=== PATIENT | female | born 1945 | race Caucasian/White ===

== ENCOUNTER 2018-04-09 13:09 | Inpatient (IN) | payer MEDICARE, OTHER ==
[~2018-04-09] VITALS: Ht 167.6 cm; Wt 73.0 kg
[~2018-04-09 13:09] MED LIST: ACHYD1T PO; ATOR20TA66 PO; CALC1TAB7 PO; CAND1TAB2 PO; CLCX200C PO; DCS100C PO; ESTR0.3T PO; ESTR2TAB PO; FEXO-142 PO; FLUT50DI IH; MECL-105 PO; NITR-65 PO; POTA99TA18 PO
[2018-04-09] MEDS ORDERED: ONDANSETRON 4 MG/2 ML (SDV) Z0FRAN IVP PRN (13:30)
[2018-04-09] MEDS ORDERED: IBUPROFEN TABLET 200 MG TAB PO PRN (13:30)
[2018-04-09] MEDS ORDERED: ACETAMINOPHEN 500 MG TAB (TYLENOL) PO PRN (13:30)
[2018-04-09] MEDS ORDERED: fentaNYL INJECTION 100 MCG/2 ML AMP IVP PRN (13:30)
[2018-04-09 16:00] VITALS: BP 157/74
[2018-04-09] MEDS ORDERED: PIPERACILLIN/TAZO 4.5 GM/D5W 100 ML IVPB IV NR ×2 (16:00)
[2018-04-09] MEDS: inSUlin ASPART (NovoLOG) 1 UNIT/0.01 ML (CHARGE PER UNIT) SC SCH ×2 (16:55→21:02)
[2018-04-09 17:06] LABS: BASOPHILS % (AUTO) 0 % (0-10); EOSINOPHILS # (AUTO) 0.1 10^3/uL (0.0-0.3); EOSINOPHILS % (AUTO) 1 % (0-10); HEMATOCRIT 35 % (35-52); HEMOGLOBIN 12.1 G/DL (11.5-16.0); LYMPHOCYTES % (AUTO) 10 % (12-44); MEAN CORPUSCULAR HEMOGLOBIN 30 PG (25-34); MEAN CORPUSCULAR HGB CONC 34 G/DL (32-36); MEAN CORPUSCULAR VOLUME 86 FL (80-99); MEAN PLATELET VOLUME 8.7 FL (7.4-10.4); MONOCYTES # (AUTO) 0.7 X 10^3 (0.0-1.0); MONOCYTES % (AUTO) 7 % (0-12); NEUTROPHILS # (AUTO) 7.8 X 10^3 (1.8-7.8); NEUTROPHILS % (AUTO) 81 % (42-75); PLATELET COUNT 321 10^3/uL (130-400); RED CELL DISTRIBUTION WIDTH 13.3 % (10.0-14.5); WHITE BLOOD COUNT 9.6 10^3/uL (4.3-11.0)
[2018-04-09] MEDS: ENOXAPARIN 40 MG/0.4 ML (LOVENOX) SYR SC SCH (17:06)
[2018-04-09] MEDS: methylPREDNISolone 40 MG/ML (Solu-MEDROL) VIAL IV SCH (17:07)
[2018-04-09] MEDS ORDERED: CATHETER FLUSH 10 ML SYR IV PRN (17:15)
[2018-04-09] MEDS ORDERED: NS 250 ML (IVPB) BAG IV ONE (17:15)
[2018-04-09] MEDS ORDERED: RECEIVED CONTRAST (Hold Metformin) IV SCH (17:15)
[2018-04-09] MEDS ORDERED: IOHEXOL 350 MG/ML 100 ML (OMNIPAQUE 350) VIAL IV ONE (17:15)
[2018-04-09 17:29] LABS: ERYTHROCYTE SEDIMENTATION RATE 20 MM/HR (0-30)
[2018-04-09 17:31] LABS: ALANINE AMINOTRANSFERASE 25 U/L (0-55); ALKALINE PHOSPHATASE 185 U/L (40-136); BILIRUBIN,TOTAL 0.9 MG/DL (0.1-1.0); BUN/CREATININE RATIO 10; CALCIUM 9.1 MG/DL (8.5-10.1); CARBON DIOXIDE 24 MMOL/L (21-32); CHLORIDE 103 MMOL/L (98-107); CREATININE SERUM 0.82 MG/DL (0.60-1.30); GFR ESTIMATED > 60; GLUCOSE 95 MG/DL (70-105); POTASSIUM 3.5 MMOL/L (3.6-5.0); SODIUM 135 MMOL/L (135-145); TOTAL PROTEIN 6.8 GM/DL (6.4-8.2)
--- OUTSIDE RECORDS SUMMARY | 2018-04-09 17:48 | XMS REPORT | Clinical Summary ---
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 Cinda Wallis Cystocele, midline UTI 599.0 Active Cinda Wallis Urinary tract infection, site not specified HRT V07.4 Active Cinda Wallis Hormone replacement therapy (postmenopausal) OSTEOARTHRITIS 715.90 Active Cinda Wallis Osteoarthrosis, unspecified whether generalized or localized, involving unspecified site BACK PAIN 724.5 Active Cinda Wallis Backache, unspecified HYPERCHOLESTEROLEMIA 272.0 Active Cinda Wallis Pure hypercholesterolemia BENIGN POSITIONAL VERTIGO 386.11 Resolved Cinda Wallis Benign paroxysmal positional vertigo HYPERCALCEMIA 275.42 Active Cinda Wallis Hypercalcemia Medication List Medication Instructions Start Date Stop Date Generic Name NDC Status Provider Patient Instruction TRANSDERM-SCOP 1.5 MG PT72 1 patch behind ear and change every 3 days SCOPOLAMINE BASE 32582500092 Active Cinda Wallis CALTRATE 600 PLUS-VIT D 600-200 MG-IU TABS 1 PO BID CALCIUM- VITAMIN D No Longer Active Cinda Wallis ZOSTAVAX 22458 UNT/0.65ML SOLR 1 injection once to prevent Shingles ZOSTER VACCINE LIVE 74225351710 No Longer Active Cinda Tangela Wallis ESTRACE 1 MG TAB 1 PO Daily ESTRADIOL 22477051335 Active Cinda Tangela Wallis MACROBID 100 MG CAP 1 PO every third day NITROFURANTOIN MONOHYD MACRO 66132212379 No Longer Active Cinda Tangela Wallis FLUTICASONE PROPIONATE 50 MCG/ACT SUSP 2 puffs daily FLUTICASONE PROPIONATE 63278285588 Active Ladonna Luztis AFRIN NASAL SPRAY 0.05 % SOLN 2 puffs each nostril BID for 3 days. OXYMETAZOLINE HCL 53237791327 No Longer Active Cindadaisy Wallis TRANSDERM-SCOP 1.5 MG PT72 1 patch behind ear and change every 3 days SCOPOLAMINE BASE 92950503331 No Longer Active Cindadaisy Wallis MECLIZINE HCL 25 MG TAB 1 PO Q6hrs prn dizziness MECLIZINE HCL 41469684127 Active Cindadaisy Wallis LIPITOR 20 MG TAB 1 PO QD ATORVASTATIN CALCIUM 75201233417 Active Cinda Wallis NASACORT AQ 55 MCG/ACT AERS 2 puffs each nostril daily TRIAMCINOLONE ACETONIDE 75490124088 No Longer Active Cindadaisy Wallis GNP POTASSIUM 99 MG TABS 1 PO daily POTASSIUM 25094931834 Active Cindadaisy Wallis PREMARIN 0.3 MG TAB 1 PO QD ESTROGENS CONJUGATED 97271643930 No Longer Active Cindadaisy Wallis CELEBREX 200 MG CAPS 1 po qd CELECOXIB 66157351217 Active Cinda Wallis ATACAND HCT 16-12.5 MG TABS 1 PO daily CANDESARTAN CILEXETIL-HCTZ 00564575813 Active Cinda Wallis Immunizations Vaccine Administration Date Value Standard Description pneumococcal immunization administered Done pneumococcal polysaccharide vaccine, 23 valent Influenza vaccine given DONE influenza virus vaccine, unspecified formulation Vital Signs Date Name Value Unit Range Description blood pressure, diastolic - 8462-4 70 mm[Hg] BP valdovinos blood pressure, systolic - 8480-6 124 mm[Hg] BP sys pulse rate E&M - 8867-4 70 /min Heart rate respiratory rate E&M - 9279-1 14 /min Resp rate temperature E&M 97.1 [degF] Body temperature weight E&M - 3141-9 151 [lb_av] Weight Measured blood pressure, diastolic - 8462-4 70 mm[Hg] BP valdovinos blood pressure, systolic - 8480-6 131 mm[Hg] BP sys pulse rate E&M - 8867-4 68 /min Heart rate respiratory rate E&M - 9279-1 14 /min Resp rate temperature E&M 97.8 [degF] Body temperature weight E&M - 3141-9 155 [lb_av] Weight Measured blood pressure, diastolic - 8462-4 65 mm[Hg] BP valdovinos blood pressure, systolic - 8480-6 120 mm[Hg] BP sys pulse rate E&M - 8867-4 66 /min Heart rate respiratory rate E&M - 9279-1 14 /min Resp rate temperature E&M 98.6 [degF] Body temperature weight E&M - 3141-9 152 [lb_av] Weight Measured Diagnostic Results Date Name Value Unit Range Description Clinical Lists Update: CMP,FLP,HgA1c - Chemistry Estimated Glomerular Filtration Rate (calc) 56 mL/min/1.73m2 LDL cholesterol, serum 96 mg/dL albumin, serum 4.6 g/dL alkaline phosphatase, serum 160 U/L urea nitrogen, blood 14 mg/dL calcium, serum 10.0 mg/dL chloride, serum 100 mmol/L cholesterol, serum 201 mg/dL carbon dioxide, venous blood 23 mmol/L creatinine, serum 0.99 mg/dL HDL cholesterol, serum 88 mg/dL hemoglobin A1C, blood, as % of total hemoglobin 5.30 % potassium, serum 4.0 mmol/L protein, total, serum 7.1 g/dL aspartate aminotransferase (SGOT), serum 21 U/L alanine aminotransferase (SGPT), serum 21 U/L bilirubin, serum, total 0.8 mg/dL triglyceride, serum, fasting 84 mg/dL sodium, serum 137 mmol/L anion gap, serum 18 cholesterol/HDL ratio, serum, percent 2.3 very low density lipoproteins 17 mg/dL glucose, plasma fasting 88 mg/dL Clinical Lists Update: CMP,FLP,TSH,FREE T4 - Chemistry LDL cholesterol, serum 80 mg/dL Estimated Glomerular Filtration Rate (calc) 59 mL/min/1.73m2 potassium, serum 3.8 mmol/L calcium, serum 10.6 mg/dL protein, total, serum 7.2 g/dL carbon dioxide, venous blood 25 mmol/L aspartate aminotransferase (SGOT), serum 19 U/L urea nitrogen, blood 9 mg/dL alanine aminotransferase (SGPT), serum 14 U/L creatinine, serum 0.94 mg/dL bilirubin, serum, total 0.9 mg/dL chloride, serum 97 mmol/L triglyceride, serum, fasting 95 mg/dL thyroxine, serum, free 0.87 ng/dL sodium, serum 135 mmol/L HDL cholesterol, serum 96 mg/dL alkaline phosphatase, serum 145 U/L albumin, serum 4.5 g/dL very low density lipoproteins 19 mg/dL cholesterol, serum 213 mg/dL glucose, plasma fasting 89 mg/dL thyroid stimulating hormone, serum 3.19 u[iU]/mL Clinical Lists Update: HgA1c - Chemistry hemoglobin A1C, blood, as % of total hemoglobin 4.7 % Encounters Code Encounter Date Provider Facility CPT-53909 Ofc Vst, Est Level IV 17:14:29 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 [facility] CPT-91823 Ofc Vst, Est Level III 15:33:52 CDT [facility] Tangela Wallis DO, FACP CPT-91576 Ofc Vst, Est Level III 19:46:06 CDT [facility] CPT-49786 Ofc Vst, New Level III 21:39:11 CDT [facility] Procedures Code Procedure Name Date Entry Date Standard Description CPT-G0439 Medicare Annual Wellness Visit 19:51:24 CDT CPT-G8443 E-Prescribing Medication Sent 19:46:06 CDT CPT-G8443 E-Prescribing Medication Sent 14:42:11 CDT CPT-G0438 Medicare Annual Wellness Visit Initial 14:42:11 CDT CPT-G8445 E-Prescribing Not sent due to no medication given 21:39: 11 CDT
--- OUTSIDE RECORDS SUMMARY | 2018-04-09 17:48 | XMS REPORT | Clinical Summary ---
Author Author User, EDIE Quevedo [place] [facility] Address Unknown Phone Allergies, Adverse Reactions, Alerts Allergy Name Reaction Description Start Date Severity Status Provider No Known Allergies [place] Conditions or Problems Problem Name Problem Code [...] vertigo HYPERCALCEMIA 275.42 Active Cinda Wallis Hypercalcemia SINUSITIS, SPHENOIDAL, ACUTE 461.3 Active Cinda Wallis Acute sphenoidal sinusitis Medication List Medication Instructions Start Date Stop Date Generic Name NDC Status Provider Patient Instruction DR. WEBSTER NASAL SPRAY (DEXAMETHASONE, GENTAMICIN, SALINE) 2 puffs each nostril TID for [address] CAMPOS'S NASAL SPRAY ( DEXAMETHASONE, GENTAMICIN, SALINE) No Longer Active Cinda Wallis PREDNISONE 10 MG TAB 2 PO at one time once daily for 3 days, then 1 PO daily for 4 days PREDNISONE 20373257452 No Longer Active Cinda Wallis HYDROXYZINE HCL 25 MG TAB 1 PO QHS prn sinus drainage. HYDROXYZINE HCL 47403547891 Active Cinda Wallis CEFDINIR 300 MG CAPS 1 PO BID CEFDINIR 66651817352 No Longer Active Cinda Wallis TRANSDERM-SCOP 1.5 MG PT72 1 patch behind ear and change every 3 days SCOPOLAMINE BASE 50021694424 Active Ladonna Su CALTRATE 600 PLUS-VIT D 600-200 MG-IU TABS 1 PO BID CALCIUM- VITAMIN D No Longer Active Cinda Wallis ZOSTAVAX 59805 UNT/0.65ML SOLR 1 injection once to prevent Shingles ZOSTER VACCINE LIVE 26799970673 No Longer Active Cinda Wallis ESTRACE 1 MG TAB 1 PO Daily ESTRADIOL 99594086225 Active Cinda Wallis MACROBID 100 MG CAP 1 PO every third day NITROFURANTOIN MONOHYD MACRO 94915220468 No Longer Active Cinda Wallis FLUTICASONE PROPIONATE 50 MCG/ACT SUSP 2 puffs daily FLUTICASONE PROPIONATE 44141200148 Active Ladonna Su AFRIN NASAL SPRAY 0.05 % SOLN 2 puffs each nostril BID for 3 days. OXYMETAZOLINE HCL 55147564035 No Longer Active Cinda Wallis TRANSDERM-SCOP 1.5 MG PT72 1 patch behind ear and change every 3 days SCOPOLAMINE BASE 36164219273 No Longer Active Cinda Wallis MECLIZINE HCL 25 MG TAB 1 PO Q6hrs prn dizziness MECLIZINE HCL 51378903923 Active Cinda Wallis LIPITOR 20 MG TAB 1 PO QD ATORVASTATIN CALCIUM 59418076289 Active Cinda Honeycutt Wallis NASACORT AQ 55 MCG/ACT AERS 2 puffs each nostril daily TRIAMCINOLONE ACETONIDE 34651921799 No Longer Active Cinda Honeycutt Wallis GNP POTASSIUM 99 MG TABS 1 PO daily POTASSIUM 92345684084 Active Cinda Honeycutt Kadi PREMARIN 0.3 MG TAB 1 PO QD ESTROGENS CONJUGATED 56487208369 No Longer Active Cinda Honeycutt Kadi CELEBREX 200 MG CAPS 1 po qd CELECOXIB 14123106998 Active Cinda Honeycutt Wallis ATACAND HCT 16-12.5 MG TABS 1 PO daily CANDESARTAN CILEXETIL-HCTZ 47842069209 Active Cinda Tangela Kadi Immunizations Vaccine Administration Date Value Standard Description pneumococcal immunization administered Done pneumococcal polysaccharide vaccine, 23 valent Influenza vaccine given DONE influenza virus vaccine, unspecified formulation Vital Signs Date Name Value Unit Range Description blood pressure, diastolic - 8462-4 76 mm[Hg] BP valdovinos blood pressure, systolic - 8480-6 124 mm[Hg] BP sys pulse rate E&M - 8867-4 68 /min Heart rate respiratory rate E&M - 9279-1 14 /min Resp rate temperature E&M 97.4 [degF] Body temperature weight E&M - 3141-9 [...] Value Unit Range Description Clinical Lists Update: CMP,FLP - Chemistry Estimated Glomerular Filtration Rate (calc) 65 mL/min/1.73m2 albumin, serum 4.1 g/dL very low density lipoproteins 16 mg/dL cholesterol/HDL ratio, serum, percent 2.3 anion gap, serum 13 sodium, serum 134 mmol/L triglyceride, serum, fasting 81 mg/dL bilirubin, serum, total 0.6 mg/dL alanine aminotransferase (SGPT), serum 12 U/L aspartate aminotransferase (SGOT), serum 16 U/L protein, total, serum 6.6 g/dL potassium, serum 3.8 mmol/L LDL cholesterol, serum 96 mg/dL HDL cholesterol, serum 89 mg/dL creatinine, serum 0.87 mg/dL carbon dioxide, venous blood 24 mmol/L cholesterol, serum 201 mg/dL chloride, serum 101 mmol/L calcium, serum 9.4 mg/dL urea nitrogen, blood 11 mg/dL alkaline phosphatase, serum 100 U/L glucose, plasma fasting 89 mg/dL Clinical Lists Update: CMP,FLP,HgA1c - Chemistry Estimated Glomerular Filtration Rate (calc) 56 mL/min/1.73m2 glucose, plasma fasting 88 mg/dL very low density lipoproteins 17 mg/dL cholesterol/HDL ratio, serum, percent 2.3 anion gap, serum 18 sodium, serum 137 mmol/L triglyceride, serum, fasting 84 mg/dL bilirubin, serum, total 0.8 mg/dL alanine aminotransferase (SGPT), serum 21 U/L aspartate aminotransferase (SGOT), serum 21 U/L protein, total, serum 7.1 g/dL potassium, serum 4.0 mmol/L LDL cholesterol, serum 96 mg/dL hemoglobin A1C, blood, as % of total hemoglobin 5.30 % HDL cholesterol, serum 88 mg/dL creatinine, serum 0.99 mg/dL carbon dioxide, venous blood 23 mmol/L cholesterol, serum 201 mg/dL chloride, serum 100 mmol/L calcium, serum 10.0 mg/dL urea nitrogen, blood 14 mg/dL alkaline phosphatase, serum 160 U/L albumin, serum 4.6 g/dL Clinical Lists Update: CMP,FLP,TSH,FREE T4 - Chemistry Estimated Glomerular Filtration Rate (calc) 59 mL/min/1.73m2 albumin, serum 4.5 g/dL glucose, plasma fasting 89 mg/dL very low density lipoproteins 19 mg/dL sodium, serum 135 mmol/L triglyceride, serum, fasting 95 mg/dL bilirubin, serum, total 0.9 mg/dL alanine aminotransferase (SGPT), serum 14 U/L aspartate aminotransferase (SGOT), serum 19 U/L protein, total, serum 7.2 g/dL potassium, serum 3.8 mmol/L LDL cholesterol, serum 80 mg/dL thyroid stimulating hormone, serum 3.19 u[iU]/mL HDL cholesterol, serum 96 mg/dL thyroxine, serum, free 0.87 ng/dL creatinine, serum 0.94 mg/dL carbon dioxide, venous blood 25 mmol/L cholesterol, serum 213 mg/dL chloride, serum 97 mmol/L calcium, serum 10.6 mg/dL urea nitrogen, blood 9 mg/dL alkaline phosphatase, serum 145 U/L Clinical Lists Update: HgA1c - Chemistry hemoglobin A1C, blood, as % of total hemoglobin 4.7 % Encounters Code Encounter Date Provider Facility CPT-13200 Ofc Vst, Est Level III 17:06:21 CDT Cinda Wallis DO, FACP CPT-56706 Ofc Vst, Est Level IV 17:14:29 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
--- OUTSIDE RECORDS SUMMARY | 2018-04-09 17:48 | XMS REPORT | Clinical Summary ---
Author Author User, LEYDIDestini Quevedo [place] [facility] Address Unknown Phone Allergies, Adverse Reactions, [...] and change every 3 days SCOPOLAMINE BASE 02745339541 Active Cinda Wallis CALTRATE 600 PLUS-VIT D 600-200 MG-IU TABS 1 PO BID CALCIUM- VITAMIN D No Longer Active Cinda Wallis ZOSTAVAX 85795 UNT/0.65ML SOLR 1 injection once to prevent Shingles ZOSTER VACCINE LIVE 17452211195 No Longer Active Cinda Tangela Wallis ESTRACE 1 MG TAB 1 PO Daily ESTRADIOL 16752751400 Active Cinda Tangela Wallis MACROBID 100 MG CAP 1 PO every third day NITROFURANTOIN MONOHYD MACRO 29431259407 No Longer Active Cinda Tangela Wallis FLUTICASONE PROPIONATE 50 MCG/ACT SUSP 2 puffs daily FLUTICASONE PROPIONATE 65081203379 Active Ladonna Luztis AFRIN NASAL SPRAY 0.05 % SOLN 2 puffs each nostril BID for 3 days. OXYMETAZOLINE HCL 75147272486 No Longer Active Cindadaisy Wallis TRANSDERM-SCOP 1.5 MG PT72 1 patch behind ear and change every 3 days SCOPOLAMINE BASE 56153700007 No Longer Active Cindadaisy Wallis MECLIZINE HCL 25 MG TAB 1 PO Q6hrs prn dizziness MECLIZINE HCL 95803401442 Active Cindadaisy Wallis LIPITOR 20 MG TAB 1 PO QD ATORVASTATIN CALCIUM 46020229607 Active Cinda Wallis NASACORT AQ 55 MCG/ACT AERS 2 puffs each nostril daily TRIAMCINOLONE ACETONIDE 97957265690 No Longer Active Cindadaisy Wallis GNP POTASSIUM 99 MG TABS 1 PO daily POTASSIUM 96292724992 Active Cindadaisy Wallis PREMARIN 0.3 MG TAB 1 PO QD ESTROGENS CONJUGATED 45390884248 No Longer Active Cindadaisy Wallis CELEBREX 200 MG CAPS 1 po qd CELECOXIB 06494475085 Active Cinda Wallis ATACAND HCT 16-12.5 MG TABS 1 PO daily CANDESARTAN CILEXETIL-HCTZ 71609476544 Active Cinda Wallis Immunizations Vaccine Administration Date [...] % Encounters Code Encounter Date Provider Facility CPT-18673 Ofc Vst, Est Level IV 17:14:29 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 [facility] Tangela SIM[facility] CPT-33798 Ofc Vst, Est Level III 15:33:52 CDT [facility] Tangela Wallis DO, FACP CPT-61119 Ofc Vst, Est Level III 19:46:06 CDT [facility] CPT-75936 Ofc Vst, New Level III 21:39:11 CDT [facility] Procedures Code Procedure Name Date Entry Date Standard Description CPT-G0439 Medicare Annual Wellness Visit 19:51:24 CDT CPT-G8443 E-Prescribing Medication Sent 19:46:06 CDT CPT-G8443 E-Prescribing Medication Sent 14:42:11 CDT CPT-G0438 Medicare Annual Wellness Visit Initial 14:42:11 CDT CPT-G8445 E-Prescribing Not sent due to no medication given 21:39: 11 CDT
--- OUTSIDE RECORDS SUMMARY | 2018-04-09 17:48 | XMS REPORT | Clinical Summary ---
Author Author User, EDIE Quevedo [place] [facility] Address Unknown Phone Allergies, Adverse Reactions, [...] CAMPOS'S NASAL SPRAY ( DEXAMETHASONE, GENTAMICIN, SALINE) Active Cinda Wallis PREDNISONE 10 MG TAB 2 PO at one time once daily for 3 days, then 1 PO daily for 4 days PREDNISONE 51197768467 Active Cinda Wallis HYDROXYZINE HCL 25 MG TAB 1 PO QHS prn sinus drainage. HYDROXYZINE HCL 76818248652 Active Cinda Wallis CEFDINIR 300 MG CAPS 1 PO BID CEFDINIR 96694047838 Active Cinda Wallis TRANSDERM-SCOP 1.5 MG PT72 1 patch behind ear and change every 3 days SCOPOLAMINE BASE 86446942449 Active Cinda Wallis CALTRATE 600 PLUS-VIT D 600-200 MG-IU TABS 1 PO BID CALCIUM- VITAMIN D No Longer Active Cinda Wallis ZOSTAVAX 22082 UNT/0.65ML SOLR 1 injection once to prevent Shingles ZOSTER VACCINE LIVE 55920436392 No Longer Active Cinda Wallis ESTRACE 1 MG TAB 1 PO Daily ESTRADIOL 89965253288 Active Cinda Wallis MACROBID 100 MG CAP 1 PO every third day NITROFURANTOIN MONOHYD MACRO 57117693789 No Longer Active Cinda Wallis FLUTICASONE PROPIONATE 50 MCG/ACT SUSP 2 puffs daily FLUTICASONE PROPIONATE 03411226042 Active Ladonna Su AFRIN NASAL SPRAY 0.05 % SOLN 2 puffs each nostril BID for 3 days. OXYMETAZOLINE HCL 45050788770 No Longer Active Cinda Wallis TRANSDERM-SCOP 1.5 MG PT72 1 patch behind ear and change every 3 days SCOPOLAMINE BASE 72183682359 No Longer Active Cinda Wallis MECLIZINE HCL 25 MG TAB 1 PO Q6hrs prn dizziness MECLIZINE HCL 49768029924 Active Cinda Wallis LIPITOR 20 MG TAB 1 PO QD ATORVASTATIN CALCIUM 33401393260 Active Cinda Honeycutt Wallis NASACORT AQ 55 MCG/ACT AERS 2 puffs each nostril daily TRIAMCINOLONE ACETONIDE 17048418263 No Longer Active Cinda Silvestrener GNP POTASSIUM 99 MG TABS 1 PO daily POTASSIUM 04856037038 Active Cinda Honeycutt Wallis PREMARIN 0.3 MG TAB 1 PO QD ESTROGENS CONJUGATED 71720337427 No Longer Active Cinda Honeycutt Kadi CELEBREX 200 MG CAPS 1 po qd CELECOXIB 48734198353 Active Cinda Honeycutt Wallis ATACAND HCT 16-12.5 MG TABS 1 PO daily CANDESARTAN CILEXETIL-HCTZ 72968486315 Active Cinda Honeycutt Kadi Immunizations Vaccine Administration Date Value Standard [...] Description Clinical Lists Update: CMP,FLP,HgA1c - Chemistry urea nitrogen, blood 14 mg/dL alkaline phosphatase, serum 160 U/L chloride, serum 100 mmol/L cholesterol, serum 201 mg/dL carbon dioxide, venous blood 23 mmol/L creatinine, serum 0.99 mg/dL HDL cholesterol, serum 88 mg/dL hemoglobin A1C, blood, as % of total hemoglobin 5.30 % LDL cholesterol, serum 96 mg/dL potassium, serum 4.0 mmol/L protein, total, serum 7.1 g/dL aspartate aminotransferase (SGOT), serum 21 U/L alanine aminotransferase (SGPT), serum 21 U/L bilirubin, serum, total 0.8 mg/dL triglyceride, serum, fasting 84 mg/dL sodium, serum 137 mmol/L anion gap, serum 18 cholesterol/HDL ratio, serum, percent 2.3 very low density lipoproteins 17 mg/dL glucose, plasma fasting 88 mg/dL Estimated Glomerular Filtration Rate (calc) 56 mL/min/1.73m2 albumin, serum 4.6 g/dL calcium, serum 10.0 mg/dL Clinical Lists Update: CMP,FLP,TSH,FREE T4 - Chemistry albumin, serum 4.5 g/dL alkaline phosphatase, serum 145 U/L urea nitrogen, blood 9 mg/dL calcium, serum 10.6 mg/dL chloride, serum 97 mmol/L cholesterol, serum 213 mg/dL carbon dioxide, venous blood 25 mmol/L creatinine, serum 0.94 mg/dL thyroxine, serum, free 0.87 ng/dL HDL cholesterol, serum 96 mg/dL thyroid stimulating hormone, serum 3.19 u[iU]/mL LDL cholesterol, serum 80 mg/dL potassium, serum 3.8 mmol/L protein, total, serum 7.2 g/dL aspartate aminotransferase (SGOT), serum 19 U/L alanine aminotransferase (SGPT), serum 14 U/L bilirubin, serum, total 0.9 mg/dL triglyceride, serum, fasting 95 mg/dL sodium, serum 135 mmol/L very low density lipoproteins 19 mg/dL glucose, plasma fasting 89 mg/dL Estimated Glomerular Filtration Rate (calc) 59 mL/min/1.73m2 Clinical Lists Update: HgA1c - Chemistry hemoglobin A1C, blood, as % of total hemoglobin 4.7 % Encounters Code Encounter Date Provider Facility CPT-54556 Ofc Vst, Est Level III 17:06:21 CDT Cinda Wallis DO, FACP CPT-26856 Ofc Vst, Est Level IV 17:14:[address] [facility] CPT-74447 Ofc Vst, Est Level III 15:33:52 CDT [facility] Tangela Wallis DO, FACP CPT-27841 Ofc Vst, Est Level III 19:46:06 CDT [facility] Tangela [facility] CPT-57227 Ofc Vst, New Level III 21:39:11 CDT [facility] Tangela [facility] Procedures Code Procedure Name Date Entry Date Standard Description CPT-G0439 Medicare Annual Wellness Visit 19:51:24 CDT CPT-G8443 E-Prescribing Medication Sent 19:46:06 CDT CPT-G8443 E-Prescribing Medication Sent 14:42:11 CDT CPT-G0438 Medicare Annual Wellness Visit Initial 14:42:11 CDT CPT-G8445 E-Prescribing Not sent due to no medication given 21:39: 11 CDT
--- OUTSIDE RECORDS SUMMARY | 2018-04-09 17:49 | XMS REPORT | Clinical Summary ---
Author Author User, EDIE Quevedo [facility] Address Unknown Phone Allergies, Adverse Reactions, Alerts Allergy Name Reaction Description Start Date Severity Status Provider No Known Allergies [place] Conditions or Problems Problem Name Problem [...] and change every 3 days SCOPOLAMINE BASE 47911291867 Active Cinda Wallis CALTRATE 600 PLUS-VIT D 600-200 MG-IU TABS 1 PO BID CALCIUM- VITAMIN D No Longer Active Cinda Wallis ZOSTAVAX 19888 UNT/0.65ML SOLR 1 injection once to prevent Shingles ZOSTER VACCINE LIVE 87353145499 No Longer Active Cinda Tangela Wallis ESTRACE 1 MG TAB 1 PO Daily ESTRADIOL 46637000442 Active Cinda Tangela Wallis MACROBID 100 MG CAP 1 PO every third day NITROFURANTOIN MONOHYD MACRO 28544625872 No Longer Active Cinda Tangela Wallis FLUTICASONE PROPIONATE 50 MCG/ACT SUSP 2 puffs daily FLUTICASONE PROPIONATE 40441945797 Active Ladonna Luztis AFRIN NASAL SPRAY 0.05 % SOLN 2 puffs each nostril BID for 3 days. OXYMETAZOLINE HCL 32920674765 No Longer Active Cindadaisy Wallis TRANSDERM-SCOP 1.5 MG PT72 1 patch behind ear and change every 3 days SCOPOLAMINE BASE 41893136724 No Longer Active Cinda Tangela Wallis MECLIZINE HCL 25 MG TAB 1 PO Q6hrs prn dizziness MECLIZINE HCL 24860119470 Active Cinda Tangela Wallis LIPITOR 20 MG TAB 1 PO QD ATORVASTATIN CALCIUM 34757561685 Active Cinda Wallis NASACORT AQ 55 MCG/ACT AERS 2 puffs each nostril daily TRIAMCINOLONE ACETONIDE 30294498260 No Longer Active Cindadaisy Wallis GNP POTASSIUM 99 MG TABS 1 PO daily POTASSIUM 88170250642 Active Cinda Tangela Wallis PREMARIN 0.3 MG TAB 1 PO QD ESTROGENS CONJUGATED 66710931991 No Longer Active Cinda Tangela Wallis CELEBREX 200 MG CAPS 1 po qd CELECOXIB 51092815967 Active Cindadaisy Wallis ATACAND HCT 16-12.5 MG TABS 1 PO daily CANDESARTAN CILEXETIL-HCTZ 80952503765 Active Cinda Wallis Immunizations Vaccine Administration Date [...] % Encounters Code Encounter Date Provider Facility CPT-89063 Ofc Vst, Est Level IV 17:14:29 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 Tangela Wallis DO, FACP CPT-89343 Ofc Vst, Est Level III 19:46:06 CDT [facility] CPT-87319 Ofc Vst, New Level III 21:39:11 CDT [facility] aTngela SIM[facility] Procedures Code Procedure Name Date Entry Date Standard Description CPT-G0439 Medicare Annual Wellness Visit 19:51:24 CDT CPT-G8443 E-Prescribing Medication Sent 19:46:06 CDT CPT-G8443 E-Prescribing Medication Sent 14:42:11 CDT CPT-G0438 Medicare Annual Wellness Visit Initial 14:42:11 CDT CPT-G8445 E-Prescribing Not sent due to no medication given 21:39: 11 CDT
--- OUTSIDE RECORDS SUMMARY | 2018-04-09 17:49 | XMS REPORT | Clinical Summary ---
Author Author User, LEYDIDestini Quevedo [place] [facility] Address Unknown Phone Allergies, Adverse Reactions, [...] and change every 3 days SCOPOLAMINE BASE 64168753322 Active Cinda Wallis CALTRATE 600 PLUS-VIT D 600-200 MG-IU TABS 1 PO BID CALCIUM- VITAMIN D No Longer Active Cinda Wallis ZOSTAVAX 58327 UNT/0.65ML SOLR 1 injection once to prevent Shingles ZOSTER VACCINE LIVE 87361183798 No Longer Active Cinda Tangela Wallis ESTRACE 1 MG TAB 1 PO Daily ESTRADIOL 70438097591 Active Cinda Tangela Wallis MACROBID 100 MG CAP 1 PO every third day NITROFURANTOIN MONOHYD MACRO 65223966177 No Longer Active Cinda Tangela Wallis FLUTICASONE PROPIONATE 50 MCG/ACT SUSP 2 puffs daily FLUTICASONE PROPIONATE 32833967081 Active Ladonna Luztis AFRIN NASAL SPRAY 0.05 % SOLN 2 puffs each nostril BID for 3 days. OXYMETAZOLINE HCL 69503918427 No Longer Active Cindadaisy Wallis TRANSDERM-SCOP 1.5 MG PT72 1 patch behind ear and change every 3 days SCOPOLAMINE BASE 58687599242 No Longer Active Cindadaisy Wallis MECLIZINE HCL 25 MG TAB 1 PO Q6hrs prn dizziness MECLIZINE HCL 91709399128 Active Cindadaisy Wallis LIPITOR 20 MG TAB 1 PO QD ATORVASTATIN CALCIUM 68426403269 Active Cinda Wallis NASACORT AQ 55 MCG/ACT AERS 2 puffs each nostril daily TRIAMCINOLONE ACETONIDE 29082447027 No Longer Active Cindadaisy Wallis GNP POTASSIUM 99 MG TABS 1 PO daily POTASSIUM 45326985168 Active Cindadaisy Wallis PREMARIN 0.3 MG TAB 1 PO QD ESTROGENS CONJUGATED 19013495071 No Longer Active Cindadaisy Wallis CELEBREX 200 MG CAPS 1 po qd CELECOXIB 76775214881 Active Cinda Wallis ATACAND HCT 16-12.5 MG TABS 1 PO daily CANDESARTAN CILEXETIL-HCTZ 39468463172 Active Cinda Wallis Immunizations Vaccine Administration Date [...] % Encounters Code Encounter Date Provider Facility CPT-71958 Ofc Vst, Est Level IV 17:14:29 PA[employer]STER [employer] [facility] Tangela SIMON [facility] CPT-12619 Ofc Vst, Est Level III 15:33:52 CDT [facility] Tangela Wallis DO, FACP CPT-11702 Ofc Vst, Est Level III 19:46:06 CDT [facility]ela [facility] CPT-79910 Ofc Vst, New Level III 21:39:11 CDT [facility] Tangela [facility] Procedures Code Procedure Name Date Entry Date Standard Description CPT-G0439 Medicare Annual Wellness Visit 19:51:24 CDT CPT-G8443 E-Prescribing Medication Sent 19:46:06 CDT CPT-G8443 E-Prescribing Medication Sent 14:42:11 CDT CPT-G0438 Medicare Annual Wellness Visit Initial 14:42:11 CDT CPT-G8445 E-Prescribing Not sent due to no medication given 21:39: 11 CDT
--- OUTSIDE RECORDS SUMMARY | 2018-04-09 17:49 | XMS REPORT | Clinical Summary ---
Author Author User, LEYDIDestini Quevedo [place] [facility] Address Unknown Phone Allergies, Adverse Reactions, [...] and change every 3 days SCOPOLAMINE BASE 32824106259 Active Cinda Wallis CALTRATE 600 PLUS-VIT D 600-200 MG-IU TABS 1 PO BID CALCIUM- VITAMIN D No Longer Active Cinda Wallis ZOSTAVAX 98373 UNT/0.65ML SOLR 1 injection once to prevent Shingles ZOSTER VACCINE LIVE 58178623511 No Longer Active Cinda Tangela Wallis ESTRACE 1 MG TAB 1 PO Daily ESTRADIOL 37039396315 Active Cinda Tangela Wallis MACROBID 100 MG CAP 1 PO every third day NITROFURANTOIN MONOHYD MACRO 86717878332 No Longer Active Cinda Tangela Wallis FLUTICASONE PROPIONATE 50 MCG/ACT SUSP 2 puffs daily FLUTICASONE PROPIONATE 61454401412 Active Ladonna Luztis AFRIN NASAL SPRAY 0.05 % SOLN 2 puffs each nostril BID for 3 days. OXYMETAZOLINE HCL 99344609290 No Longer Active Cindadaisy Wallis TRANSDERM-SCOP 1.5 MG PT72 1 patch behind ear and change every 3 days SCOPOLAMINE BASE 52932491403 No Longer Active Cindadaisy Wallis MECLIZINE HCL 25 MG TAB 1 PO Q6hrs prn dizziness MECLIZINE HCL 61183807217 Active Cindadaisy Wallis LIPITOR 20 MG TAB 1 PO QD ATORVASTATIN CALCIUM 16015855310 Active Cinda Wallis NASACORT AQ 55 MCG/ACT AERS 2 puffs each nostril daily TRIAMCINOLONE ACETONIDE 71154637952 No Longer Active Cindadaisy Wallis GNP POTASSIUM 99 MG TABS 1 PO daily POTASSIUM 60500117411 Active Cindadaisy Wallis PREMARIN 0.3 MG TAB 1 PO QD ESTROGENS CONJUGATED 73172797936 No Longer Active Cindadaisy Wallis CELEBREX 200 MG CAPS 1 po qd CELECOXIB 48004421805 Active Cinda Wallis ATACAND HCT 16-12.5 MG TABS 1 PO daily CANDESARTAN CILEXETIL-HCTZ 88304370063 Active Cinda Wallis Immunizations Vaccine Administration Date [...] % Encounters Code Encounter Date Provider Facility CPT-85533 Ofc Vst, Est Level IV 17:14:[address] [facility] Tangela SIMON OFFICE CPT-89812 Ofc Vst, Est Level III 15:33:[address] [facility] Tangela Wallis DO, FACP CPT-47881 Ofc Vst, Est Level III 19:46:[address] [facility] SIM[facility] CPT-40061 Ofc Vst, New Level III 21:39:[address] [facility] Tangela SIMON [facility] Procedures Code Procedure Name Date Entry Date Standard Description CPT-G0439 Medicare Annual Wellness Visit 19:51:24 CDT CPT-G8443 E-Prescribing Medication Sent 19:46:06 CDT CPT-G8443 E-Prescribing Medication Sent 14:42:11 CDT CPT-G0438 Medicare Annual Wellness Visit Initial 14:42:11 CDT CPT-G8445 E-Prescribing Not sent due to no medication given 21:39: 11 CDT
--- OUTSIDE RECORDS SUMMARY | 2018-04-09 17:50 | XMS REPORT | Clinical Summary ---
Author Author User, LEYDIDestini Quevedo [place] [facility] Address Unknown Phone Allergies, Adverse Reactions, [...] and change every 3 days SCOPOLAMINE BASE 11918904805 Active Cinda Wallis CALTRATE 600 PLUS-VIT D 600-200 MG-IU TABS 1 PO BID CALCIUM- VITAMIN D No Longer Active Cinda Wallis ZOSTAVAX 15478 UNT/0.65ML SOLR 1 injection once to prevent Shingles ZOSTER VACCINE LIVE 71687655055 No Longer Active Cinda Tangela Wallis ESTRACE 1 MG TAB 1 PO Daily ESTRADIOL 64784175522 Active Cinda Tangela Wallis MACROBID 100 MG CAP 1 PO every third day NITROFURANTOIN MONOHYD MACRO 25102856005 No Longer Active Cinda Tangela Wallis FLUTICASONE PROPIONATE 50 MCG/ACT SUSP 2 puffs daily FLUTICASONE PROPIONATE 13317466377 Active Ladonna Luztis AFRIN NASAL SPRAY 0.05 % SOLN 2 puffs each nostril BID for 3 days. OXYMETAZOLINE HCL 05785963978 No Longer Active Cindadaisy Wallis TRANSDERM-SCOP 1.5 MG PT72 1 patch behind ear and change every 3 days SCOPOLAMINE BASE 81512904386 No Longer Active Cindadaisy Wallis MECLIZINE HCL 25 MG TAB 1 PO Q6hrs prn dizziness MECLIZINE HCL 24964282390 Active Cindadaisy Wallis LIPITOR 20 MG TAB 1 PO QD ATORVASTATIN CALCIUM 78811152328 Active Cinda Wallis NASACORT AQ 55 MCG/ACT AERS 2 puffs each nostril daily TRIAMCINOLONE ACETONIDE 58225527373 No Longer Active Cindadaisy Wallis GNP POTASSIUM 99 MG TABS 1 PO daily POTASSIUM 09390995452 Active Cindadaisy Wallis PREMARIN 0.3 MG TAB 1 PO QD ESTROGENS CONJUGATED 30134018510 No Longer Active Cindadaisy Wallis CELEBREX 200 MG CAPS 1 po qd CELECOXIB 12699630069 Active Cinda Wallis ATACAND HCT 16-12.5 MG TABS 1 PO daily CANDESARTAN CILEXETIL-HCTZ 04523012358 Active Cinda Wallis Immunizations Vaccine Administration Date [...] % Encounters Code Encounter Date Provider Facility CPT-80092 Ofc Vst, Est Level IV 17:14:29 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 [facility] Tangela SIMON OFFICE CPT-42959 Ofc Vst, Est Level III 15:33:52 CDT [facility] Tangela Wallis DO, FACP CPT-54207 Ofc Vst, Est Level III 19:46:06 CDT [facility] Tangela SIMON [facility] CPT-01165 Ofc Vst, New Level III 21:39:11 CDT [facility] Tangela SIM[facility] Procedures Code Procedure Name Date Entry Date Standard Description CPT-G0439 Medicare Annual Wellness Visit 19:51:24 CDT CPT-G8443 E-Prescribing Medication Sent 19:46:06 CDT CPT-G8443 E-Prescribing Medication Sent 14:42:11 CDT CPT-G0438 Medicare Annual Wellness Visit Initial 14:42:11 CDT CPT-G8445 E-Prescribing Not sent due to no medication given 21:39: 11 CDT
--- OUTSIDE RECORDS SUMMARY | 2018-04-09 17:50 | XMS REPORT | Clinical Summary ---
Author Author User, EDIE Quevedo [place] [facility] Address Unknown Phone Allergies, Adverse Reactions, [...] and change every 3 days SCOPOLAMINE BASE 68435900512 Active Cinda Wallis CALTRATE 600 PLUS-VIT D 600-200 MG-IU TABS 1 PO BID CALCIUM- VITAMIN D No Longer Active Cinda Wallis ZOSTAVAX 08040 UNT/0.65ML SOLR 1 injection once to prevent Shingles ZOSTER VACCINE LIVE 79722954197 No Longer Active Cinda Tangela Wallis ESTRACE 1 MG TAB 1 PO Daily ESTRADIOL 13550821052 Active Cinda Tangela Wallis MACROBID 100 MG CAP 1 PO every third day NITROFURANTOIN MONOHYD MACRO 22934269842 No Longer Active Cinda Tangela Wallis FLUTICASONE PROPIONATE 50 MCG/ACT SUSP 2 puffs daily FLUTICASONE PROPIONATE 60230963205 Active Ladonna Luztis AFRIN NASAL SPRAY 0.05 % SOLN 2 puffs each nostril BID for 3 days. OXYMETAZOLINE HCL 69691364572 No Longer Active Cindadaisy Wallis TRANSDERM-SCOP 1.5 MG PT72 1 patch behind ear and change every 3 days SCOPOLAMINE BASE 56249125101 No Longer Active Cinda Tangela Wallis MECLIZINE HCL 25 MG TAB 1 PO Q6hrs prn dizziness MECLIZINE HCL 67552039019 Active Cinda Tangela Wallis LIPITOR 20 MG TAB 1 PO QD ATORVASTATIN CALCIUM 69139370342 Active Cinda Wallis NASACORT AQ 55 MCG/ACT AERS 2 puffs each nostril daily TRIAMCINOLONE ACETONIDE 08745087170 No Longer Active Cindadaisy Wallis GNP POTASSIUM 99 MG TABS 1 PO daily POTASSIUM 70059551858 Active Cinda Tangela Wallis PREMARIN 0.3 MG TAB 1 PO QD ESTROGENS CONJUGATED 67887119065 No Longer Active Cinda Tangela Wallis CELEBREX 200 MG CAPS 1 po qd CELECOXIB 33271731585 Active Cindadaisy Wallis ATACAND HCT 16-12.5 MG TABS 1 PO daily CANDESARTAN CILEXETIL-HCTZ 24795308906 Active Cinda Wallis Immunizations Vaccine Administration Date [...] % Encounters Code Encounter Date Provider Facility CPT-49316 Ofc Vst, Est Level IV 17:14:29 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 [facility]ela SIM[facility]ICE CPT-33387 Ofc Vst, Est Level III 15:33:52 CDT [facility] Tangela Wallis DO, FACP CPT-78862 Ofc Vst, Est Level III 19:46:06 CDT [facility]ela [facility] CPT-27116 Ofc Vst, New Level III 21:39:11 CDT [facility] Tangela [facility] Procedures Code Procedure Name Date Entry Date Standard Description CPT-G0439 Medicare Annual Wellness Visit 19:51:24 CDT CPT-G8443 E-Prescribing Medication Sent 19:46:06 CDT CPT-G8443 E-Prescribing Medication Sent 14:42:11 CDT CPT-G0438 Medicare Annual Wellness Visit Initial 14:42:11 CDT CPT-G8445 E-Prescribing Not sent due to no medication given 21:39: 11 CDT
[2018-04-09] MEDS ORDERED: LEVO50TA6 PO (18:44)
[2018-04-09] MEDS ORDERED: MONT10TA24 PO (18:44)
[2018-04-09] MEDS ORDERED: HYDR-700 PO (18:44)
--- NOTE | 2018-04-09 18:49 | Diagnostic Imaging Report ---
PROCEDURE: CT chest with contrast only. TECHNIQUE: Multiple contiguous axial images were obtained through the chest after administration of intravenous contrast. DATE: April 09, 2018. COMPARISON: None. INDICATION: 72-year-old female, dyspnea. Wheezing, cough, and chest tightness. FINDINGS: There is a 2 mm left upper lobe pulmonary nodule on axial image 23. There is focal airspace consolidation in the left upper lobe on axial image 33 and adjacent sequential images. There are predominantly linear opacities within the dependent aspects of the right lower lobe and left lower lobe likely reflecting mild atelectasis and/or scarring. There is no identified pneumothorax. The central airways are patent. There is no pleural effusion. There is no identified central pulmonary embolus. The main pulmonary artery is normal in caliber. The heart is normal in size. There is no pericardial effusion. There are atherosclerotic calcifications noted. There is no identified abnormally enlarged mediastinal, hilar, or axillary lymph node which specifically meets CT size criteria for adenopathy. Subcentimeter precarinal, right paratracheal, and right hilar lymph nodes are noted. Limited visualized portions of the upper abdomen are unremarkable in appearance. There is a sclerotic lesion in the T7 vertebral body, which measures 6 mm in size. Internal attenuation measures 984 Hounsfield units. This most likely reflects a benign bone island although difficult to definitively diagnose. No additional sclerotic bone lesion is present. There are degenerative changes of the spine. There is no identified acute bony abnormality. IMPRESSION: CT CHEST. 1. Focal airspace consolidation in the posterior aspect of the left upper lobe, which may reflect pneumonia or other alveolar consolidative process. Recommend correlation clinically and ensure followup to resolution. Dictated by: Dictated on workstation # [id number]
--- NOTE | 2018-04-09 18:49 | Diagnostic Imaging Report ---
EXAMINATION: Chest (PA and lateral). CLINICAL INDICATION: 72-year-old female, cough and wheezing. Shortness of breath. COMPARISON: CT chest of April 09, 2018 at 1817 hours. FINDINGS: There is very subtle airspace consolidation in the left upper lobe which is much easier appreciated on same day CT chest. There is no additional focal airspace consolidation noted radiographically. Heart size and mediastinal contours are unremarkable. There is no identified pneumothorax or pleural effusion. There are degenerative changes of the spine. IMPRESSION: Very subtle airspace consolidation in the left upper lobe much easier appreciated on same day CT chest. This may relate to pneumonia or other alveolar consolidative process. Recommend correlation clinically and ensure followup to resolution. Dictated by: Dictated on workstation # [id number]
--- NOTE | 2018-04-09 18:55 | Diagnostic Imaging Report ---
PROCEDURE: CT paranasal sinus without contrast TECHNIQUE: Multiple contiguous axial images were obtained through the sinuses without the use of intravenous contrast. Coronal and sagittal reformations were then performed. DATE: 04/09/2018. INDICATION: 72-year-old female, drainage and pressure in head. Shortness of breath. Cough and wheezing. COMPARISON: None available. FINDINGS: The bilateral maxillary sinuses, sphenoid sinuses, ethmoidal air cells, and frontal sinuses are well aerated. There is no air-fluid level. There are no frothy internal secretions. The bilateral sphenoethmoidal recesses are patent. The bilateral ostiomeatal units are patent. There is deviation of the bony nasal septum to the left of midline. The mastoid air cells and middle ears are well aerated, bilaterally. There is pneumatization of the Javier apices. The temporomandibular joints are normally aligned. The orbits are grossly unremarkable in appearance. There are degenerative changes at the C1-C2 articulation. IMPRESSION: 1. No evidence of acute or chronic sinusitis. 3. Deviation of the bony nasal septum to the left of midline. Dictated by: Dictated on workstation # [id number]
[2018-04-09] MEDS: RT-ALBUTEROL/IPRATROPIUM 3 ML (DUONEB) VIAL INH SCH ×2 (19:23→22:46)
[2018-04-09] MEDS: RT-BUDESONIDE NEBS 0.5 MG/2ML (PULMICORT) AMP INH SCH (19:23)
[2018-04-09 19:46] LABS: ABG OXYGEN SATURATION 95 % (94-100); ABG PCO2 33 MMHG (35-45); ABG PH 7.46 (7.37-7.43); ABG PO2 70 MMHG (79-93); ABG TCO2 24.5 MMOL/L (21.0-31.0)
[2018-04-09 19:49] LABS: ALLENS TEST POSITIVE; INSPIRED O2 ROOM AIR; VENTILATOR NO
[2018-04-09] MEDS: BENZONATATE 100 MG (TESSALON) CAPSULE PO SCH (20:09)
[2018-04-09] MEDS: HYDROCODONE/CHLOR 10MG/5 ML (TUSSIONEX SUSP) 5ML UDC PO SCH (20:10)
[2018-04-09 20:40] VITALS: BP 150/70
[2018-04-09] MEDS: PIPERACILLIN SODIUM/TAZOBACTAM 4.5 GM in NS (IVPB) 100 ML IV SCH (22:25)
[2018-04-09] MEDS: CATHETER FLUSH 10 ML SYR IV SCH (22:25)
[2018-04-10] VITALS (7 sets, daily range): BP systolic 101–151; BP diastolic 55–65
[2018-04-10] MEDS: methylPREDNISolone 40 MG/ML (Solu-MEDROL) VIAL IV SCH ×5 (00:24→23:07)
[2018-04-10] MEDS: RT-ALBUTEROL/IPRATROPIUM 3 ML (DUONEB) VIAL INH SCH ×6 (02:47→21:24)
[2018-04-10] MEDS: CATHETER FLUSH 10 ML SYR IV SCH ×3 (05:34→21:50)
[2018-04-10] MEDS: inSUlin ASPART (NovoLOG) 1 UNIT/0.01 ML (CHARGE PER UNIT) SC SCH ×4 (05:36→22:01)
[2018-04-10] MEDS: PIPERACILLIN SODIUM/TAZOBACTAM 4.5 GM in NS (IVPB) 100 ML IV SCH ×3 (05:36→21:50)
[2018-04-10 06:00] LABS: BASOPHILS % (AUTO) 0 % (0-10); EOSINOPHILS % (AUTO) 0 % (0-10); HEMATOCRIT 33 % (35-52); LYMPHOCYTES # (AUTO) 0.4 X 10^3 (1.0-4.0); LYMPHOCYTES % (AUTO) 4 % (12-44); MEAN CORPUSCULAR HEMOGLOBIN 29 PG (25-34); MEAN CORPUSCULAR HGB CONC 33 G/DL (32-36); MEAN CORPUSCULAR VOLUME 86 FL (80-99); MEAN PLATELET VOLUME 8.5 FL (7.4-10.4); MONOCYTES # (AUTO) 0.1 X 10^3 (0.0-1.0); MONOCYTES % (AUTO) 1 % (0-12); NEUTROPHILS % (AUTO) 96 % (42-75); PLATELET COUNT 307 10^3/uL (130-400); RED BLOOD COUNT 3.83 10^6/uL (4.35-5.85); RED CELL DISTRIBUTION WIDTH 13.6 % (10.0-14.5); WHITE BLOOD COUNT 9.4 10^3/uL (4.3-11.0)
[2018-04-10 06:20] LABS: ALBUMIN 3.8 GM/DL (3.2-4.5); BILIRUBIN,TOTAL 0.6 MG/DL (0.1-1.0); CALCIUM 9.2 MG/DL (8.5-10.1); CREATININE SERUM 0.97 MG/DL (0.60-1.30); POTASSIUM 2.9 MMOL/L (3.6-5.0); TOTAL PROTEIN 6.4 GM/DL (6.4-8.2)
[2018-04-10 06:25] LABS: BAND NEUTROPHILS 3 %; LYMPHOCYTES % (MANUAL) 3 %; MONOCYTES % (MANUAL) 1 %; NEUTROPHILS % (MANUAL) 93 %; RBC MORPH NORMAL
[2018-04-10] MEDS: RT-BUDESONIDE NEBS 0.5 MG/2ML (PULMICORT) AMP INH SCH ×2 (06:36→18:45)
[2018-04-10] MEDS ORDERED: CAND16TA12 PO (08:40)
[2018-04-10] MEDS ORDERED: CELE-63 PO (08:40)
[2018-04-10] MEDS ORDERED: ESTR2TAB PO (08:40)
[2018-04-10] MEDS ORDERED: FLUT1DIS26 INH (08:40)
[2018-04-10] MEDS ORDERED: ATOR20TA66 PO (08:40)
[2018-04-10] MEDS ORDERED: FEXO-46 PO (08:50)
[2018-04-10] MEDS ORDERED: HYDR473S34 PO (08:50)
[2018-04-10] MEDS ORDERED: FLUT9.9S NS (08:50)
[2018-04-10] MEDS: BENZONATATE 100 MG (TESSALON) CAPSULE PO SCH ×3 (08:54→20:14)
[2018-04-10] MEDS: HYDROCODONE/CHLOR 10MG/5 ML (TUSSIONEX SUSP) 5ML UDC PO SCH ×2 (08:54→20:14)
--- NOTE | 2018-04-10 10:37 | History & Physical-Hospitalist ---
History of Present Illness HPI/Chief Complaint CC: Cough HPI: This is a 72-year-old white female clinic patient of mine with a past medical history of seasonal allergies and asthma-like condition for the past 4 spring times who presented to my office as a work in appointment due to cough and shortness of breath. She has underwent multiple antibiotic rounds along with steroid rounds with imaging scans and labs for the past 8 weeks when she presented with congestion cough and bronchitis-like issues placed on asthma treatment seen every week since that time and even underwent a pulmonary function test and CT scan which IV infiltrated at [facility] so it was without contrast and continued to do poorly. I started the clinic yesterday found to have bilateral wheezing low-grade fever and just overall declining for the past 8 weeks. I ordered a CT scan which revealed pneumonia and I have placed her on inhaled corticosteroid and nebulizer solution in addition to IV steroids and empirically placed her on Zosyn for antibiotic coverage. I have assessed her to have status asthmaticus for the past 8 weeks and now pneumonia noted on CT scan that was not apparent on chest x-ray 2 weeks prior. She also had hyponatremia I stopped hydrochlorothiazide 5 days ago that has since resolved but severe hyperkalemia noted on labs today so will initiate aggressive supplement. Source: patient Exam Limitations: no limitations Date Seen 04/10/18 Time Seen by Provider: 08:30 Attending Physician Cinda Wallis DO PCP Cinda Wallis DO Referring Physician Date of Admission April 09, 2018 at 15:37 Home Medications & Allergies Home Medications Reviewed patient Home Medication Reconciliation performed by pharmacy medication reconciliations bench lay out technician and/or nursing. Patients Allergies have been reviewed. 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) Alcohol Use: Occasionally Uses Alcohol Beverage of Choice: Wine Recreational Drug Use: No Smoking Status: Never a Smoker Physical Abuse Screen: No Sexual Abuse: No Recent Foreign Travel: No Contact w/other who traveled: No Recent Hopitalizations: No Recent Infectious Disease Expo: No Immunizations Up To Date Pediatric: Yes Date of Pneumonia Vaccine: Jan 10, 2015 Date of Influenza Vaccine: Sep 07, 2014 Seasonal Allergies Seasonal Allergies: No Past Medical History Respiratory: Asthma Cardiac: High Cholesterol, Hypertension Reproductive: No Genitourinary: Bladder Infection History of Blood Disorders: No Family History Cardiovascular disease 19 FATHER, G8 SISTER Diabetes mellitus 19 MOTHER, FH: bladder cancer 19 FATHER, FH: lymphoma 19 MOTHER, FH: prostate cancer 19 FATHER, Hypertension Review of Systems Constitutional: see HPI, chills, dizziness, fever, malaise, weakness EENTM: mouth pain, nose congestion, throat pain Respiratory: cough, dyspnea on exertion, orthopnea, short of breath, wheezing Cardiovascular: no symptoms reported Gastrointestinal: loss of appetite, nausea, vomiting Genitourinary: decreased output Musculoskeletal: back pain Skin: no symptoms reported Psychiatric/Neurological: Anxiety, Depressed All Other Systems Reviewed Negative Unless Noted: Yes Physical Exam Physical Exam Vital Signs Vital Signs - First Documented 04/09/18 16:00 Temp 99.5 Pulse 84 Resp 18 B/P (MAP) 157/74 (101) Pulse Ox 96 O2 Delivery Room Air Capillary Refill : General Appearance: WD/WN, Chronically ill, Mild Distress (due to cough and declined status) Eyes: Bilateral Eye Normal Inspection, Bilateral Eye PERRL HEENT: PERRL/EOMI, Normal ENT Inspection, Pharynx Normal Neck: Full Range of Motion, Normal Inspection, Non Tender, Supple, Carotid Bruit Respiratory: Chest Non Tender, No Accessory Muscle Use, No Respiratory Distress , Crackles, Decreased Breath Sounds, Rales, Wheezing Cardiovascular: Regular Rate, Rhythm, No Edema, No Gallop, No JVD, No Murmur, Normal Peripheral Pulses Gastrointestinal: Normal Bowel Sounds, No Organomegaly, No Pulsatile Mass, Non Tender, Soft Back: Normal Inspection, No CVA Tenderness, No Vertebral Tenderness Extremity: Normal Capillary Refill, Normal Inspection, Normal Range of Motion, Non Tender, No Calf Tenderness, No Pedal Edema Neurologic/Psychiatric: Alert, Oriented x3, No Motor/Sensory Deficits, Normal Mood/Affect Skin: Normal Color, Warm/Dry Lymphatic: No Adenopathy Results Results/Procedures Labs Laboratory Tests 04/09/18 16:47 04/10/18 05:50 Patient resulted labs reviewed. Assessment/Plan Admission Diagnosis Assessment: Left upper lobe pneumonia failed multiple rounds of antibiotics and steroids Asthma Hypoxia Plan: Maintain IV steroids Nebulizer treatments Budesonide Zosyn Replace potassium Admission Status: Inpatient Order (span 2 midnights) Reason for Inpatient Admission: IV steroids along with IV abx due to resistant bacteria after failed PO abx Diagnosis/Problems Diagnosis/Problems (1) Pneumonia Status: Acute Assessment & Plan: IV abx, Nebs Qualifiers: Pneumonia type: due to unspecified organism Laterality: left Lung location: upper lobe of lung Qualified Codes: J18.1 - Lobar pneumonia, unspecified organism (2) Wheezing Status: Acute Assessment & Plan: IV steroids and Pulmicort (3) Status asthmaticus Status: Acute Assessment & Plan: IV steroids and Pulmicort Qualifiers: Asthma severity: moderate Asthma persistence: persistent Qualified Codes : J45.42 - Moderate persistent asthma with status asthmaticus (4) Hypokalemia Status: Acute Assessment & Plan: Replace IV and PO and Magnesium empirically (5) Hyposmolality and/or hyponatremia Status: Resolved (6) Cough Status: Acute Assessment & Plan: Tussionex (7) Hypoxemia Status: Acute Assessment & Plan: O2 (8) Hypertension Status: Acute Qualifiers: Hypertension type: essential hypertension Qualified Codes: I10 - Essential (primary) hypertension (9) OAB (overactive bladder) Status: Chronic Clinical Quality Measures DVT/VTE Risk/Contraindication: Risk Factor Score Per Nursin RFS Level Per Nursing on Admit: 2=Moderate CINDA WALLIS DO Apr 10, 2018 10:37
[2018-04-10] MEDS: NS IV 1000 ML 1,000 ML IV SCH (11:20)
[2018-04-10] MEDS: MAGNESIUM 1 GM/100 ML IVPB 100 ML IV SCH ×2 (11:20→13:58)
[2018-04-10] MEDS: POTASSIUM CL 10MEQ/50ML IVPB 50 ML IV SCH ×3 (11:21→13:58)
[2018-04-10] MEDS: KCL 10 MEQ TAB (MICRO K) PO SCH ×4 (11:58→20:13)
[2018-04-10] MEDS: ENOXAPARIN 40 MG/0.4 ML (LOVENOX) SYR SC SCH (16:13)
[2018-04-11] MEDS: RT-ALBUTEROL/IPRATROPIUM 3 ML (DUONEB) VIAL INH SCH ×6 (02:18→21:42)
[2018-04-11 04:14] VITALS: BP 117/59
[2018-04-11 04:55] LABS: BASOPHILS % (AUTO) 0 % (0-10); EOSINOPHILS % (AUTO) 0 % (0-10); HEMATOCRIT 31 % (35-52); HEMOGLOBIN 10.8 G/DL (11.5-16.0); LYMPHOCYTES # (AUTO) 0.4 X 10^3 (1.0-4.0); LYMPHOCYTES % (AUTO) 2 % (12-44); MEAN CORPUSCULAR HEMOGLOBIN 30 PG (25-34); MEAN CORPUSCULAR HGB CONC 34 G/DL (32-36); MEAN CORPUSCULAR VOLUME 87 FL (80-99); MONOCYTES # (AUTO) 0.6 X 10^3 (0.0-1.0); MONOCYTES % (AUTO) 2 % (0-12); NEUTROPHILS # (AUTO) 24.5 X 10^3 (1.8-7.8); NEUTROPHILS % (AUTO) 96 % (42-75); PLATELET COUNT 299 10^3/uL (130-400); RED BLOOD COUNT 3.62 10^6/uL (4.35-5.85); RED CELL DISTRIBUTION WIDTH 13.9 % (10.0-14.5); WHITE BLOOD COUNT 25.5 10^3/uL (4.3-11.0)
[2018-04-11] MEDS: PIPERACILLIN SODIUM/TAZOBACTAM 4.5 GM in NS (IVPB) 100 ML IV SCH ×3 (05:07→21:12)
[2018-04-11] MEDS: methylPREDNISolone 40 MG/ML (Solu-MEDROL) VIAL IV SCH ×4 (05:07→23:56)
[2018-04-11] MEDS: CATHETER FLUSH 10 ML SYR IV SCH ×3 (05:07→21:14)
[2018-04-11 05:19] LABS: ALANINE AMINOTRANSFERASE 26 U/L (0-55); ALBUMIN 3.5 GM/DL (3.2-4.5); ALKALINE PHOSPHATASE 151 U/L (40-136); BILIRUBIN,TOTAL 0.5 MG/DL (0.1-1.0); BUN/CREATININE RATIO 13; CALCIUM 8.5 MG/DL (8.5-10.1); CARBON DIOXIDE 19 MMOL/L (21-32); CHLORIDE 109 MMOL/L (98-107); CREATININE SERUM 0.83 MG/DL (0.60-1.30); GFR ESTIMATED > 60; GLUCOSE 174 MG/DL (70-105); POTASSIUM 3.8 MMOL/L (3.6-5.0); SODIUM 138 MMOL/L (135-145); TOTAL PROTEIN 5.9 GM/DL (6.4-8.2)
[2018-04-11] MEDS: inSUlin ASPART (NovoLOG) 1 UNIT/0.01 ML (CHARGE PER UNIT) SC SCH ×4 (05:23→21:22)
[2018-04-11] MEDS: NS IV 1000 ML 1,000 ML IV SCH (06:14)
[2018-04-11] MEDS: RT-BUDESONIDE NEBS 0.5 MG/2ML (PULMICORT) AMP INH SCH ×2 (06:46→18:29)
[2018-04-11] MEDS: KCL 10 MEQ TAB (MICRO K) PO SCH ×3 (07:35→16:55)
[2018-04-11 08:00] VITALS: BP 121/57
--- NOTE | 2018-04-11 08:47 | Progress Note-Hospitalist ---
Subjective HPI/CC On Admission Date Seen by Provider: Apr 11, 2018 Time Seen by Provider: 08:41 CC: Cough HPI: This is a 72-year-old white female clinic patient of mine with a past medical history of seasonal allergies and asthma-like condition for the past 4 spring times who presented to my office as a work in appointment due to cough and shortness of breath. She has underwent multiple antibiotic rounds along with steroid rounds with imaging scans and labs for the past 8 weeks when she presented with congestion cough and bronchitis-like issues placed on asthma treatment seen every week since that time and even underwent a pulmonary function test and CT scan which IV infiltrated at [facility] so it was without contrast and continued to do poorly. I started the clinic yesterday found to have bilateral wheezing low-grade fever and just overall declining for the past 8 weeks. I ordered a CT scan which revealed pneumonia and I have placed her on inhaled corticosteroid and nebulizer solution in addition to IV steroids and empirically placed her on Zosyn for antibiotic coverage. I have assessed her to have status asthmaticus for the past 8 weeks and now pneumonia noted on CT scan that was not apparent on chest x-ray 2 weeks prior. She also had hyponatremia I stopped hydrochlorothiazide 5 days ago that has since resolved but severe hyperkalemia noted on labs today so will initiate aggressive supplement. Subjective/Events-last exam She reports that she slept well last night but still feels very lousy. She is still coughing a lot but not as productive as before. Focused Exam Lactate Level 04/09/18 16:47: Lactic Acid Level 0.81 Objective Exam Vital Signs Vital Signs Date Time Temp Pulse Resp B/P (MAP) Pulse Ox O2 Delivery O2 Flow Rate FiO2 04/11/18 08:00 97.5 95 18 121/57 (78) 93 Room Air Capillary Refill : General Appearance: No Apparent Distress, WD/WN Respiratory: No Accessory Muscle Use, No Respiratory Distress, Decreased Breath Sounds, Wheezing Cardiovascular: Regular Rate, Rhythm, No Murmur Gastrointestinal: Normal Bowel Sounds, Non Tender, Soft Neurologic/Psychiatric: Alert, Oriented x3, Normal Mood/Affect Results/Procedures Lab Laboratory Tests 04/11/18 04:24 Patient resulted labs reviewed. Assessment/Plan Assessment and Plan Assess & Plan/Chief Complaint Pneumonia Diagnosis/Problems Diagnosis/Problems (1) Pneumonia Status: Acute Assessment & Plan: Continue on Zosyn Sputum cx with normal nikki currently Leukocytosis up today but likely due to steroids Qualifiers: Pneumonia type: due to unspecified organism Laterality: left Lung location: upper lobe of lung Qualified Codes: J18.1 - Lobar pneumonia, unspecified organism (2) Status asthmaticus Status: Acute Assessment & Plan: MAT Protocol IV steroids Budesonide scheduled Qualifiers: Asthma severity: moderate Asthma persistence: persistent Qualified Codes : J45.42 - Moderate persistent asthma with status asthmaticus (3) Hypertension Status: Resolved Assessment & Plan: Only on arrival now improved and normotensive Qualifiers: Hypertension type: essential hypertension Qualified Codes: I10 - Essential (primary) hypertension (4) Hypokalemia Status: Resolved Assessment & Plan: Resolved Still getting 5x/day supplement Will recheck in AM Clinical Quality Measures DVT/VTE Risk/Contraindication: Risk Factor Score Per Nursin RFS Level Per Nursing on Admit: 2=Moderate FRANCIS RO MD Apr 11, 2018 08:47
[2018-04-11] MEDS: BENZONATATE 100 MG (TESSALON) CAPSULE PO SCH ×3 (09:17→21:14)
[2018-04-11] MEDS: HYDROCODONE/CHLOR 10MG/5 ML (TUSSIONEX SUSP) 5ML UDC PO SCH ×2 (09:18→21:14)
[2018-04-11 12:00] VITALS: BP 122/60
[2018-04-11] MEDS ORDERED: DOCUSATE SODIUM 100 MG (COLACE) CAP PO ONE (12:20)
[2018-04-11] MEDS: DOCUSATE SODIUM 100 MG (COLACE) CAP PO SCH ×2 (12:25→21:14)
[2018-04-11 16:00] VITALS: BP 142/67
[2018-04-11] MEDS: ENOXAPARIN 40 MG/0.4 ML (LOVENOX) SYR SC SCH (16:55)
[2018-04-11 20:00] VITALS: BP 132/62
[2018-04-11 23:45] VITALS: BP 148/74
[2018-04-12] MEDS: RT-ALBUTEROL/IPRATROPIUM 3 ML (DUONEB) VIAL INH SCH ×6 (01:11→22:29)
[2018-04-12] MEDS: methylPREDNISolone 40 MG/ML (Solu-MEDROL) VIAL IV SCH ×4 (05:11→23:06)
[2018-04-12] MEDS: CATHETER FLUSH 10 ML SYR IV SCH ×3 (05:12→21:03)
[2018-04-12] MEDS: PIPERACILLIN SODIUM/TAZOBACTAM 4.5 GM in NS (IVPB) 100 ML IV SCH ×3 (05:12→21:03)
[2018-04-12] MEDS: RT-BUDESONIDE NEBS 0.5 MG/2ML (PULMICORT) AMP INH SCH ×2 (06:46→19:17)
[2018-04-12] MEDS: inSUlin ASPART (NovoLOG) 1 UNIT/0.01 ML (CHARGE PER UNIT) SC SCH ×4 (07:10→21:03)
[2018-04-12] MEDS: KCL 10 MEQ TAB (MICRO K) PO SCH ×3 (07:10→17:04)
[2018-04-12 08:00] VITALS: BP 162/87
[2018-04-12] MEDS: BENZONATATE 100 MG (TESSALON) CAPSULE PO SCH ×3 (08:49→20:56)
[2018-04-12] MEDS: DOCUSATE SODIUM 100 MG (COLACE) CAP PO SCH ×2 (08:49→20:56)
[2018-04-12] MEDS: HYDROCODONE/CHLOR 10MG/5 ML (TUSSIONEX SUSP) 5ML UDC PO SCH ×2 (08:50→20:56)
--- NOTE | 2018-04-12 12:46 | Progress Note-Hospitalist ---
Subjective HPI/CC On Admission Date Seen by Provider: Apr 12, 2018 Time Seen by Provider: 12:41 CC: Cough HPI: This is a 72-year-old white female clinic patient of mine with a past medical history of seasonal allergies and asthma-like condition for the past 4 spring times who presented to my office as a work in appointment due to cough and shortness of breath. She has underwent multiple antibiotic rounds along with steroid rounds with imaging scans and labs for the past 8 weeks when she presented with congestion cough and bronchitis-like issues placed on asthma treatment seen every week since that time and even underwent a pulmonary function test and CT scan which IV infiltrated at [facility] so it was without contrast and continued to do poorly. I started the clinic yesterday found to have bilateral wheezing low-grade fever and just overall declining for the past 8 weeks. I ordered a CT scan which revealed pneumonia and I have placed her on inhaled corticosteroid and nebulizer solution in addition to IV steroids and empirically placed her on Zosyn for antibiotic coverage. I have assessed her to have status asthmaticus for the past 8 weeks and now pneumonia noted on CT scan that was not apparent on chest x-ray 2 weeks prior. She also had hyponatremia I stopped hydrochlorothiazide 5 days ago that has since resolved but severe hyperkalemia noted on labs today so will initiate aggressive supplement. Subjective/Events-last exam Pt reports feeling slightly better and able to take deeper breaths but still not breathing well and has audible wheezing to her. Focused Exam Lactate Level 04/09/18 16:47: Lactic Acid Level 0.81 Objective Exam Vital Signs Vital Signs Date Time Temp Pulse Resp B/P (MAP) Pulse Ox O2 Delivery O2 Flow Rate FiO2 04/12/18 08:07 Room Air 04/12/18 08:00 98.5 110 18 162/87 (112) 91 Capillary Refill : Less Than 3 Seconds General Appearance: No Apparent Distress, WD/WN Respiratory: No Accessory Muscle Use, No Respiratory Distress, Wheezing ( diffuse expiratory) Cardiovascular: Regular Rate, Rhythm, No Murmur Gastrointestinal: Non Tender, Soft; No Distended Neurologic/Psychiatric: Alert, Oriented x3, Normal Mood/Affect Skin: Normal Color, Warm/Dry Results/Procedures Lab Patient resulted labs reviewed. Assessment/Plan Assessment and Plan Assess & Plan/Chief Complaint Pneumonia Diagnosis/Problems Diagnosis/Problems (1) Pneumonia Status: Acute Assessment & Plan: Continue on Zosyn Day / Sputum cx with normal nikki currently Improving Qualifiers: Pneumonia type: due to unspecified organism Laterality: left Lung location: upper lobe of lung Qualified Codes: J18.1 - Lobar pneumonia, unspecified organism (2) Status asthmaticus Status: Acute Assessment & Plan: MAT Protocol IV steroids Budesonide scheduled More air movement today Will consult pulm given such slow recovery Qualifiers: Asthma severity: moderate Asthma persistence: persistent Qualified Codes : J45.42 - Moderate persistent asthma with status asthmaticus (3) Hypertension Status: Resolved Assessment & Plan: BP trending up today Will resume home antihypertensives Qualifiers: Hypertension type: essential hypertension Qualified Codes: I10 - Essential (primary) hypertension (4) Hypokalemia Status: Resolved Assessment & Plan: Resolved Still getting 5x/day supplement Will recheck in AM Clinical Quality Measures DVT/VTE Risk/Contraindication: Risk Factor Score Per Nursin RFS Level Per Nursing on Admit: 2=Moderate FRANCIS RO MD Apr 12, 2018 12:46
[2018-04-12] MEDS: CATHETER FLUSH 10 ML SYR IV PRN ×2 (14:11→17:05)
[2018-04-12 14:26] LABS: BASOPHILS % (AUTO) 0 % (0-10); EOSINOPHILS % (AUTO) 0 % (0-10); HEMATOCRIT 32 % (35-52); HEMOGLOBIN 10.8 G/DL (11.5-16.0); LYMPHOCYTES # (AUTO) 0.5 X 10^3 (1.0-4.0); LYMPHOCYTES % (AUTO) 2 % (12-44); MEAN CORPUSCULAR HEMOGLOBIN 29 PG (25-34); MEAN CORPUSCULAR HGB CONC 34 G/DL (32-36); MEAN CORPUSCULAR VOLUME 87 FL (80-99); MEAN PLATELET VOLUME 8.9 FL (7.4-10.4); MONOCYTES # (AUTO) 0.7 X 10^3 (0.0-1.0); MONOCYTES % (AUTO) 3 % (0-12); NEUTROPHILS # (AUTO) 22.3 X 10^3 (1.8-7.8); NEUTROPHILS % (AUTO) 95 % (42-75); PLATELET COUNT 299 10^3/uL (130-400); RED BLOOD COUNT 3.68 10^6/uL (4.35-5.85); RED CELL DISTRIBUTION WIDTH 14.2 % (10.0-14.5); WHITE BLOOD COUNT 23.6 10^3/uL (4.3-11.0)
[2018-04-12] MEDS ORDERED: PATIENT MAY USE OWN MED,SINGLE MED PO SCH (14:30)
[2018-04-12 14:42] LABS: BUN/CREATININE RATIO 15; CALCIUM 8.6 MG/DL (8.5-10.1); CARBON DIOXIDE 18 MMOL/L (21-32); CHLORIDE 107 MMOL/L (98-107); CREATININE SERUM 0.89 MG/DL (0.60-1.30); GFR ESTIMATED > 60; GLUCOSE 155 MG/DL (70-105); POTASSIUM 4.4 MMOL/L (3.6-5.0); SODIUM 136 MMOL/L (135-145)
[2018-04-12 15:09] LABS: LYMPHOCYTES % (MANUAL) 2 %; NEUTROPHILS % (MANUAL) 98 %; RBC MORPH NORMAL
[2018-04-12 16:00] VITALS: BP 159/80
[2018-04-12] MEDS: ENOXAPARIN 40 MG/0.4 ML (LOVENOX) SYR SC SCH (17:04)
[2018-04-12 20:00] VITALS: BP 132/63
[2018-04-12] MEDS: FLUTICASONE NASAL SPRAY (FLONASE) 16 GM BTL NS SCH (20:55)
[2018-04-12] MEDS: LORATADINE (CLARITIN) 10 MG TAB PO SCH (20:56)
[2018-04-12] MEDS ORDERED: LEVOTHYROXINE 50 MCG (LEVOTHROID) TAB PO SCH (21:00)
[2018-04-12] MEDS ORDERED: NON-FORMULARY MEDICATION 1 EA EA (Hydroxyzine HCl 25 MG) PO SCH (21:00)
[2018-04-12] MEDS ORDERED: MONTELUKAST 10 MG (SINGULAIR) TAB PO SCH (21:00)
[2018-04-12] MEDS ORDERED: ATORVASTATIN 20 MG (LIPITOR) TABLET PO SCH (21:00)
[2018-04-12] MEDS ORDERED: NON-FORMULARY MEDICATION 1 EA EA (Fluticasone Propionate (Flonase Allergy Relief) 2 SPRAY) NS SCH (21:00)
[2018-04-12] MEDS ORDERED: NON-FORMULARY MEDICATION 1 EA EA (Fexofenadine HCl 180 MG) PO SCH (21:00)
[2018-04-12] MEDS ORDERED: hydrOXYzine (VISTARIL) 25 MG CAP PO SCH (21:00)
[2018-04-12] MEDS: CANDESARTAN 16 MG PO SCH (23:24)
[2018-04-13] VITALS: BP 182/83
[2018-04-13] MEDS: RT-ALBUTEROL/IPRATROPIUM 3 ML (DUONEB) VIAL INH SCH ×2 (01:49→08:20)
[2018-04-13] MEDS: methylPREDNISolone 40 MG/ML (Solu-MEDROL) VIAL IV SCH (05:57)
[2018-04-13 05:58] LABS: BASOPHILS % (AUTO) 0 % (0-10); EOSINOPHILS % (AUTO) 0 % (0-10); HEMATOCRIT 32 % (35-52); HEMOGLOBIN 10.7 G/DL (11.5-16.0); LYMPHOCYTES # (AUTO) 0.6 X 10^3 (1.0-4.0); LYMPHOCYTES % (AUTO) 3 % (12-44); MEAN CORPUSCULAR HEMOGLOBIN 29 PG (25-34); MEAN CORPUSCULAR HGB CONC 34 G/DL (32-36); MEAN CORPUSCULAR VOLUME 86 FL (80-99); MEAN PLATELET VOLUME 8.8 FL (7.4-10.4); MONOCYTES # (AUTO) 0.5 X 10^3 (0.0-1.0); MONOCYTES % (AUTO) 3 % (0-12); NEUTROPHILS # (AUTO) 17.2 X 10^3 (1.8-7.8); NEUTROPHILS % (AUTO) 94 % (42-75); PLATELET COUNT 284 10^3/uL (130-400); RED BLOOD COUNT 3.67 10^6/uL (4.35-5.85); WHITE BLOOD COUNT 18.3 10^3/uL (4.3-11.0)
[2018-04-13] MEDS: CATHETER FLUSH 10 ML SYR IV SCH (05:58)
[2018-04-13] MEDS: PIPERACILLIN SODIUM/TAZOBACTAM 4.5 GM in NS (IVPB) 100 ML IV SCH (05:58)
[2018-04-13] MEDS ORDERED: KCL 10 MEQ TAB (MICRO K) PO ONE (06:00)
[2018-04-13 06:14] LABS: BUN/CREATININE RATIO 17; CALCIUM 8.4 MG/DL (8.5-10.1); CARBON DIOXIDE 20 MMOL/L (21-32); CHLORIDE 107 MMOL/L (98-107); CREATININE SERUM 0.84 MG/DL (0.60-1.30); GFR ESTIMATED > 60; GLUCOSE 152 MG/DL (70-105); SODIUM 138 MMOL/L (135-145)
[2018-04-13] MEDS: inSUlin ASPART (NovoLOG) 1 UNIT/0.01 ML (CHARGE PER UNIT) SC SCH (06:29)
[2018-04-13 08:00] VITALS: BP 175/85
--- NOTE | 2018-04-13 08:22 | Pulmonary Consultation ---
History of Present Illness History of Present Illness Date of Consultation 04/13/18 08:07 Time Seen by Provider: 08:07 Date of Admission History of Present Illness 72yo with hx of allergies, asthma presented from Dr. Wallis's office secondary to worsening SOB, cough. SHe was treated with multiple rounds of Abx therapy and steroids. Pt was admitted after failing out patient treatment. Pt has had prior episodes. Pt is feeling better however she still has persistent cough and dyspnea. She is scheduled for a outpatient PFT already. I am consulted for pulmonary management. Allergies and Home Medications Allergies Uncoded Allergies: NARCOTICS (Adverse Reaction, Unknown, CAUSES OVERSENSITIVITY, 01/02/15) Home Medications Atorvastatin Calcium 20 Mg Tablet, 20 MG PO HS, (Reported) Candesartan Cilexetil 16 Mg Tablet, 1 TAB PO DAILY, (Reported) Celecoxib 200 Mg Capsule, 200 MG PO DAILY, (Reported) Estradiol 2 Mg Tablet, 2 MG PO DAILY, (Reported) Fexofenadine HCl 180 Mg Tablet, 180 MG PO BID, (Reported) Fluticasone Propionate 9.9 Ml [place].susp, 2 SPRAY NS BID, (Reported) 1 SPRAY EACH NARE DAILY Hydrocodone/Chlorphen P-Stirex 473 Ml Donna.er.12h, 5 ML PO Q12H PRN for COUGH, ( Reported) Hydroxyzine HCl 25 Mg Tablet, 25 MG PO HS, (Reported) Levothyroxine Sodium 50 Mcg Tablet, 50 MCG PO HS, (Reported) Montelukast Sodium 10 Mg Tablet, 10 MG PO HS, (Reported) Past Xuoppgl-Aboygw-Nidqft Hx Past Med/Social Hx: Reviewed Nursing Past Med/Soc Hx, Reviewed and Corrections made Patient Social History Alcohol Use: Occasionally Uses Alcohol Beverage of Choice: Wine Recreational Drug Use: No Smoking Status: Never a Smoker Recent Foreign Travel: No Contact w/Someone Who Travel: No Recent Infectious Disease Expo: No Recent Hopitalizations: No Immunizations Up To Date PED Vaccines UTD: Yes Date of Pneumonia Vaccine: Jan 10, 2015 Date of Influenza Vaccine: Sep 07, 2014 Seasonal Allergies Seasonal Allergies: No Past Medical History Surgeries: Yes (VAGINAL PROLASPE SURGERY) Respiratory: Yes Cardiac: Yes High Cholesterol, Hypertension Neurological: No Reproductive Disorders: No Genitourinary: No Bladder Infection Gastrointestinal: No Musculoskeletal: Yes (ARTHRITIS) Endocrine: No HEENT: No Cancer: No Psychosocial: No Blood Disorders: No Family Medical History Cardiovascular disease 19 FATHER, G8 SISTER Diabetes mellitus 19 MOTHER, FH: bladder cancer 19 FATHER, FH: lymphoma 19 MOTHER, FH: prostate cancer 19 FATHER, Hypertension Review of Systems Time Seen by Provider: 08:35 Constitutional: Weakness, Malaise; No: Fever Eyes: No: Pain, Vision change, Conjunctivae inflammation, Eyelid inflammation, Other, Redness ENT: No: Ear pain, Ear discharge, Nose pain, Nose discharge, Nose congestion, Mouth pain, Mouth swelling, Throat pain, Throat swelling, Other Respiratory: Cough, Dry, Shortness of breath, SOB with excertion, Wheezing, Sputum; No: Hemoptysis, Pleuritic Pain Cardiovascular: Palpitations, Orthopnea, Paroxysmal Noc. Dyspnea, Lt Headedness ; No: Chest Pain Neurological: Weakness Exam Exam Vital Signs Date Time Temp Pulse Resp B/P (MAP) Pulse Ox O2 Delivery O2 Flow Rate FiO2 04/13/18 01:49 95 Room Air 04/13/18 00:00 98.0 87 18 182/83 (116) 94 Room Air 04/12/18 22:30 95 Room Air 04/12/18 20:00 97.2 88 18 132/63 (86) 94 Room Air 04/12/18 20:00 Room Air 04/12/18 19:17 96 Room Air 04/12/18 16:00 97.3 82 20 159/80 (106) 95 Room Air 04/12/18 14:36 94 Room Air I & O 04/13/18 07:00 Intake Total 2240 ml Output Total 2150 ml Balance 90 ml General Appearance: No Apparent Distress, WD/WN HEENT: PERRL/EOMI, Normal ENT Inspection, Pharynx Normal Neck: Full Range of Motion, Normal Inspection, Non Tender, Supple, Carotid Bruit Respiratory: No Accessory Muscle Use, No Respiratory Distress, Wheezing ( diffuse expiratory) Cardiovascular: Regular Rate, Rhythm, No Murmur Extremity: Normal Capillary Refill, Normal Inspection, Normal Range of Motion, Non Tender, No Calf Tenderness, No Pedal Edema Neurologic/Psychiatric: Alert, Oriented x3, Normal Mood/Affect Skin: Normal Color, Warm/Dry Lymphatic: No Adenopathy Results Lab Laboratory Tests 04/12/18 13:52 04/13/18 05:45 Assessment/Plan Assessment/Plan Acute pneumonia CAP-- failed out patient treatment -Continue Abx therapy -repeat CXR Status Asthmaticus -SVNS Q4, -Solumedrol Allergic rhinitis -Singulair, Claritin, Flonase Hx of tobacco use -check outpatient PFT once pt is improved Labs and CXR reviewed. 254 RIGO MANCIA DO Apr 13, 2018 08:21
[2018-04-13] MEDS ORDERED: CANDESARTAN CILEXETIL PO SCH (09:00)
--- NOTE | 2018-04-13 09:10 | Diagnostic Imaging Report ---
INDICATION: Pneumonia. Exam compared 04/09. FINDINGS: Lungs are clear. Heart and vessels normal. There is no effusion or pneumothorax. IMPRESSION: Stable chest, no acute appearing abnormality. Dictated by: Dictated on workstation # [id number]
[2018-04-13] MEDS: HYDROCODONE/CHLOR 10MG/5 ML (TUSSIONEX SUSP) 5ML UDC PO SCH (09:27)
[2018-04-13] MEDS: DOCUSATE SODIUM 100 MG (COLACE) CAP PO SCH (09:39)
[2018-04-13] MEDS: FLUTICASONE NASAL SPRAY (FLONASE) 16 GM BTL NS SCH (09:39)
[2018-04-13] MEDS: LORATADINE (CLARITIN) 10 MG TAB PO SCH (09:39)
[2018-04-13] MEDS: BENZONATATE 100 MG (TESSALON) CAPSULE PO SCH (09:39)
[2018-04-13] MEDS: CANDESARTAN 16 MG PO SCH (09:40)
--- NOTE | 2018-04-13 10:03 | Discharge Summary-Hospitalist ---
Diagnosis/Chief Complaint Date of Admission Apr 10, 2018 at 11:00 Date of Discharge Discharge Date: Apr 13, 2018 Admission Diagnosis Assessment: Left upper lobe pneumonia failed multiple rounds of antibiotics and steroids Asthma Hypoxia Plan: Maintain IV steroids Nebulizer treatments Budesonide Zosyn Replace potassium Discharge Diagnosis (1) Pneumonia Status: Acute Assessment & Plan: Continue on Zosyn Day 4 Sputum cx with normal nikki currently Improving (2) Status asthmaticus Status: Acute Assessment & Plan: MAT Protocol IV steroids Budesonide scheduled More air movement today Will consult pulm given such slow recovery (3) Hypertension Status: Resolved Assessment & Plan: BP trending up today Will resume home antihypertensives (4) Hypokalemia Status: Resolved Assessment & Plan: Resolved Still getting 5x/day supplement Will recheck in AM Discharge Summary Discharge Physical Exam Allergies: Uncoded Allergies: NARCOTICS (Adverse Reaction, Unknown, CAUSES OVERSENSITIVITY, 01/02/15) Vitals & I&Os Vital Signs Date Time Temp Pulse Resp B/P (MAP) Pulse Ox O2 Delivery O2 Flow Rate FiO2 04/13/18 08:58 Room Air 04/13/18 08:00 97.6 69 16 175/85 (115) 95 General Appearance: Alert, Oriented X3, Cooperative Respiratory: Other (Rales and wheezing noted right greater than left) Hospital Course Hospital course: Patient had a lengthy hospital course she was diagnosed with status asthmaticus and CT scan revealed pneumonia. Nebulizers and oxygen and IV steroids along with Zosyn were all empirically placed ABG checked and patient was supplemented with potassium. Dr. Fernanda marion consultation recommended swing bed for slower taper of steroids and continue nebulizer treatments and patient will be monitored closely on swing bed status until recovery is complete since she does live at home alone and the status asthmaticus has been attempted to be managed as an outpatient for the last 9 weeks with failure. Labs (last 24 hrs) Laboratory Tests 04/13/18 05:45: White Blood Count 18.3H, Red Blood Count 3.67L, Hemoglobin 10.7L, Hematocrit 32L , Mean Corpuscular Volume 86, Mean Corpuscular Hemoglobin 29, Mean Corpuscular Hemoglobin Concent 34, Red Cell Distribution Width 14.0, Platelet Count 284, Mean Platelet Volume 8.8, Neutrophils (%) (Auto) 94H, Lymphocytes (%) (Auto) 3L , Monocytes (%) (Auto) 3, Eosinophils (%) (Auto) 0, Basophils (%) (Auto) 0, Neutrophils # (Auto) 17.2H, Lymphocytes # (Auto) 0.6L, Monocytes # (Auto) 0.5, Eosinophils # (Auto) 0.0, Basophils # (Auto) 0.0, Sodium Level 138, Potassium Level 4.0, Chloride Level 107, Carbon Dioxide Level 20L, Anion Gap 11, Blood Urea Nitrogen 14, Creatinine 0.84, Estimat Glomerular Filtration Rate > 60, BUN/ Creatinine Ratio 17, Glucose Level 152H, Calcium Level 8.4L Microbiology 04/09/18 Blood Culture - Preliminary, Resulted No growth 04/10/18 Gram Stain - Final, Complete 04/10/18 Sputum Culture - Final, Complete Usual/normal nikki isolated. Patient resulted labs reviewed. Pending Labs Discussion & Recommendations Discharge Planning: <30 minutes discharge planning Discharge Home Medications: Active Scripts Active Reported Hydrocodone-Chlorphen ER Susp (Hydrocodone/Chlorphen P-Stirex) 473 Ml Donna.er.12h 5 Ml PO Q12H PRN Flonase Allergy Relief (Fluticasone Propionate) 9.9 Ml [place].susp 2 [place] NS BID 1 SPRAY EACH NARE DAILY Fexofenadine HCl 180 Mg Tablet 180 Mg PO BID Celecoxib 200 Mg Capsule 200 Mg PO DAILY Estradiol Tablet (Estradiol) 2 Mg Tablet 2 Mg PO DAILY Atorvastatin Calcium 20 Mg Tablet 20 Mg PO HS Candesartan Cilexetil 16 Mg Tablet 1 Tab PO DAILY Hydroxyzine HCl 25 Mg Tablet 25 Mg PO HS Montelukast Sodium 10 Mg Tablet 10 Mg PO HS Levothyroxine Sodium 50 Mcg Tablet 50 Mcg PO HS Instructions to patient/family Please see electronic discharge instructions given to patient. Clinical Quality Measures DVT/VTE Risk/Contraindication: Risk Factor Score Per Nursin RFS Level Per Nursing on Admit: 2=Moderate Problem Qualifiers (1) Pneumonia: Pneumonia type: due to unspecified organism Laterality: left Lung location: upper lobe of lung Qualified Codes: J18.1 - Lobar pneumonia, unspecified organism (2) Status asthmaticus: Asthma severity: moderate Asthma persistence: persistent Qualified Codes: J45.42 - Moderate persistent asthma with status asthmaticus (3) Hypertension: Hypertension type: essential hypertension Qualified Codes: I10 - Essential ( primary) hypertension ANNE SMILEY DO Apr 13, 2018 10:03
[2018-04-13] MEDS ORDERED: methylPREDNISolone 40 MG/ML (Solu-MEDROL) VIAL IV SCH (12:00)
[2018-04-15] MEDS ORDERED: IPRA3AMP INH (11:11)
[2018-04-15] MEDS ORDERED: PRED10TA22 PO (11:11)
[2018-04-15] MEDS ORDERED: POTA10TA6 PO (11:11)
[2018-04-15] MEDS ORDERED: FLUT1DIS26 IH (11:15)
== END 2018-04-13 10:02 | disposition swing bed (61) | DRG 194 ==
LOC: 4TH 15:37 → OBSVTOIN 04-10 11:00 → INTOOBSV 04-10 11:00 → OBSVTOIN 04-10 11:08 → UNDODISIN 04-13 10:02
PROVIDERS: ADMIT Internal Medicine; ATTEND Internal Medicine
DX: J18.9 Pneumonia, unspecified organism (principal); J45.42 Moderate persistent asthma with status asthmaticus; J30.2 Other seasonal allergic rhinitis; R09.02 Hypoxemia; I10 Essential (primary) hypertension; E87.6 Hypokalemia; N32.81 Overactive bladder; E78.00 Pure hypercholesterolemia, unspecified; F41.9 Anxiety disorder, unspecified; F32.9 Major depressive disorder, single episode, unspecified; M54.9 Dorsalgia, unspecified
CPT/HCPCS: 36415; 36600; 70486; 71046; 71260; 80048; 80053; 82805; 82962; 83605; 83880; 84484; 85007; 85025; 85027; 85379; 85652; 87040; 87070; 87205; 87804; 93005; 93306; 94640; 94664; 94760; G0378

== ENCOUNTER 2018-04-13 09:53 | Inpatient (IN) | payer MEDICARE, OTHER ==
[~2018-04-13] VITALS: Ht 167.6 cm; Wt 73.0 kg
[~2018-04-13 09:53] MED LIST changes: +CAND16TA12 PO; +CELE-63 PO; +FEXO-46 PO; +FLUT1DIS26 INH; +FLUT9.9S NS; +HYDR-700 PO; +HYDR473S34 PO; +LEVO50TA6 PO; +MONT10TA24 PO
[2018-04-13] MEDS ORDERED: fentaNYL INJECTION 100 MCG/2 ML AMP IVP PRN (10:15)
[2018-04-13] MEDS ORDERED: IBUPROFEN TABLET 200 MG TAB PO PRN (10:15)
[2018-04-13] MEDS ORDERED: ONDANSETRON 4 MG/2 ML (SDV) Z0FRAN IVP PRN (10:15)
[2018-04-13] MEDS ORDERED: ACETAMINOPHEN 500 MG TAB (TYLENOL) PO PRN (10:15)
[2018-04-13] MEDS ORDERED: PATIENT MAY USE OWN MED,SINGLE MED PO SCH (10:15)
[2018-04-13] MEDS ORDERED: CATHETER FLUSH 10 ML SYR IV PRN (10:15)
[2018-04-13] MEDS: RT-ALBUTEROL/IPRATROPIUM 3 ML (DUONEB) VIAL INH SCH ×4 (10:40→22:05)
[2018-04-13] MEDS: RT-BUDESONIDE NEBS 0.5 MG/2ML (PULMICORT) AMP INH SCH ×2 (10:40→22:05)
[2018-04-13] MEDS: inSUlin ASPART (NovoLOG) 1 UNIT/0.01 ML (CHARGE PER UNIT) SC SCH ×3 (12:01→21:01)
[2018-04-13] MEDS: methylPREDNISolone 40 MG/ML (Solu-MEDROL) VIAL IV SCH ×2 (12:24→17:24)
[2018-04-13] MEDS: KCL 10 MEQ TAB (MICRO K) PO SCH ×2 (12:24→17:23)
[2018-04-13] MEDS: BENZONATATE 100 MG (TESSALON) CAPSULE PO SCH ×2 (12:24→21:01)
[2018-04-13] MEDS: PIPERACILLIN SODIUM/TAZOBACTAM 4.5 GM in NS (IVPB) 100 ML IV SCH ×2 (14:39→22:32)
[2018-04-13] MEDS: ENOXAPARIN 40 MG/0.4 ML (LOVENOX) SYR SC SCH (17:24)
[2018-04-13 18:00] VITALS: BP 195/89
[2018-04-13] MEDS: LEVOTHYROXINE 50 MCG (LEVOTHROID) TAB PO SCH (21:01)
[2018-04-13] MEDS: ATORVASTATIN 20 MG (LIPITOR) TABLET PO SCH (21:01)
[2018-04-13] MEDS: hydrOXYzine (VISTARIL) 25 MG CAP PO SCH (21:01)
[2018-04-13] MEDS: MONTELUKAST 10 MG (SINGULAIR) TAB PO SCH (21:01)
[2018-04-13] MEDS: HYDROCODONE/CHLOR 10MG/5 ML (TUSSIONEX SUSP) 5ML UDC PO SCH (21:01)
[2018-04-13] MEDS: LORATADINE (CLARITIN) 10 MG TAB PO SCH (21:01)
[2018-04-13] MEDS: DOCUSATE SODIUM 100 MG (COLACE) CAP PO SCH (21:01)
[2018-04-13] MEDS: FLUTICASONE NASAL SPRAY (FLONASE) 16 GM BTL NS SCH (21:02)
[2018-04-14] MEDS: methylPREDNISolone 40 MG/ML (Solu-MEDROL) VIAL IV SCH ×2 (00:27→06:08)
[2018-04-14] MEDS: RT-ALBUTEROL/IPRATROPIUM 3 ML (DUONEB) VIAL INH SCH ×6 (03:02→22:24)
[2018-04-14 06:00] VITALS: BP 156/70
[2018-04-14] MEDS: inSUlin ASPART (NovoLOG) 1 UNIT/0.01 ML (CHARGE PER UNIT) SC SCH ×4 (06:00→21:36)
[2018-04-14] MEDS: PIPERACILLIN SODIUM/TAZOBACTAM 4.5 GM in NS (IVPB) 100 ML IV SCH ×3 (06:08→22:23)
[2018-04-14] MEDS: KCL 10 MEQ TAB (MICRO K) PO SCH ×3 (06:08→17:24)
[2018-04-14] MEDS: RT-BUDESONIDE NEBS 0.5 MG/2ML (PULMICORT) AMP INH SCH ×2 (06:45→19:17)
--- NOTE | 2018-04-14 06:52 | Pulmonary Progress Note ---
Subjective Time Seen by Provider: 07:43 Subjective/Events-last exam Pt states she is feeling better. Exam Exam Vital Signs Date Time Temp Pulse Resp B/P (MAP) Pulse Ox O2 Delivery O2 Flow Rate FiO2 04/14/18 03:02 93 Room Air 04/13/18 22:09 98 04/13/18 22:05 97 Room Air 04/13/18 21:00 Room Air 04/13/18 18:56 93 Room Air 04/13/18 18:00 98.6 81 18 195/89 (124) 94 Room Air 04/13/18 15:13 96 Room Air 04/13/18 10:46 98 04/13/18 10:40 92 Room Air I & O 04/14/18 07:00 Intake Total 2115 ml Output Total 1500 ml Balance 615 ml General Appearance: No Apparent Distress, WD/WN, Anxious HEENT: Normal ENT Inspection, Pharynx Normal Neck: Full Range of Motion, Normal Inspection, Non Tender, Supple Respiratory: No Accessory Muscle Use, No Respiratory Distress, Crackles, Decreased Breath Sounds Cardiovascular: Regular Rate, Rhythm, No Edema, No Gallop Gastrointestinal: normal bowel sounds, non tender, soft, no organomegaly Extremity: Normal Capillary Refill Neurologic/Psychiatric: Alert, Oriented x3 Skin: Normal Color, Warm/Dry Lymphatic: No Adenopathy Assessment/Plan Assessment/Plan Acute pneumonia CAP-- failed out patient treatment -Continue Abx therapy Status Asthmaticus -SVNS Q4, -Solumedrol - change to prednisone taper. Allergic rhinitis -Singulair, Claritin, Flonase Hx of tobacco use -check outpatient PFT once pt is improved Labs and CXR reviewed. 232 RIGO MANCIA DO Apr 14, 2018 06:52
[2018-04-14] MEDS: BENZONATATE 100 MG (TESSALON) CAPSULE PO SCH ×3 (09:15→21:03)
[2018-04-14] MEDS: FLUTICASONE NASAL SPRAY (FLONASE) 16 GM BTL NS SCH ×2 (09:15→21:05)
[2018-04-14] MEDS: DOCUSATE SODIUM 100 MG (COLACE) CAP PO SCH ×2 (09:15→21:02)
[2018-04-14] MEDS: CANDESARTAN CILEXETIL 16 MG PO SCH (09:15)
[2018-04-14] MEDS: LORATADINE (CLARITIN) 10 MG TAB PO SCH ×2 (09:15→21:03)
[2018-04-14] MEDS: HYDROCODONE/CHLOR 10MG/5 ML (TUSSIONEX SUSP) 5ML UDC PO SCH ×2 (09:15→21:00)
[2018-04-14] MEDS: predniSONE 10 MG TAB PO SCH (12:34)
[2018-04-14] MEDS: ENOXAPARIN 40 MG/0.4 ML (LOVENOX) SYR SC SCH (17:24)
[2018-04-14 18:00] VITALS: BP 176/93
[2018-04-14] MEDS: LEVOTHYROXINE 50 MCG (LEVOTHROID) TAB PO SCH (21:03)
[2018-04-14] MEDS: hydrOXYzine (VISTARIL) 25 MG CAP PO SCH (21:03)
[2018-04-14] MEDS: MONTELUKAST 10 MG (SINGULAIR) TAB PO SCH (21:03)
[2018-04-14] MEDS: ATORVASTATIN 20 MG (LIPITOR) TABLET PO SCH (21:03)
[2018-04-15] MEDS: RT-ALBUTEROL/IPRATROPIUM 3 ML (DUONEB) VIAL INH SCH ×3 (03:09→09:39)
[2018-04-15] MEDS: inSUlin ASPART (NovoLOG) 1 UNIT/0.01 ML (CHARGE PER UNIT) SC SCH ×2 (05:47→11:00)
[2018-04-15] MEDS: KCL 10 MEQ TAB (MICRO K) PO SCH ×2 (06:03→12:40)
[2018-04-15] MEDS: PIPERACILLIN SODIUM/TAZOBACTAM 4.5 GM in NS (IVPB) 100 ML IV SCH (06:03)
--- NOTE | 2018-04-15 06:25 | Pulmonary Progress Note ---
Subjective Time Seen by Provider: 06:24 Subjective/Events-last exam PT is feeling better. Exam Exam Vital Signs Date Time Temp Pulse Resp B/P (MAP) Pulse Ox O2 Delivery O2 Flow Rate FiO2 04/15/18 03:09 96 Room Air 04/14/18 22:24 94 Room Air 04/14/18 21:00 Room Air 04/14/18 19:17 99 Room Air 04/14/18 19:11 96 Room Air 04/14/18 18:00 97.6 84 18 176/93 (120) 93 Room Air 04/14/18 15:41 94 Room Air 04/14/18 11:21 91 Room Air 04/14/18 09:00 Room Air 04/14/18 06:50 98 Room Air 04/14/18 06:44 91 Room Air I & O 04/15/18 07:00 Intake Total 2300 ml Balance 2300 ml General Appearance: No Apparent Distress, WD/WN, Anxious HEENT: Normal ENT Inspection, Pharynx Normal Neck: Full Range of Motion, Normal Inspection, Non Tender, Supple Respiratory: No Accessory Muscle Use, No Respiratory Distress, Crackles, Decreased Breath Sounds Cardiovascular: Regular Rate, Rhythm, No Edema, No Gallop Gastrointestinal: normal bowel sounds, non tender, soft, no organomegaly Extremity: Normal Capillary Refill Neurologic/Psychiatric: Alert, Oriented x3 Skin: Normal Color, Warm/Dry Lymphatic: No Adenopathy Assessment/Plan Assessment/Plan Acute pneumonia CAP-- failed out patient treatment -D/C Abx therapy Status Asthmaticus -SVNS Q4, -Continue prednisone taper. Allergic rhinitis -Singulair, Claritin, Flonase Hx of tobacco use -check outpatient PFT once pt is improved Labs and CXR reviewed. Pt will need oxygen qualification testing prior to discharge. 232 RIGO MANCIA DO Apr 15, 2018 06:25
[2018-04-15 06:31] VITALS: BP 134/70
[2018-04-15] MEDS: RT-BUDESONIDE NEBS 0.5 MG/2ML (PULMICORT) AMP INH SCH (06:49)
[2018-04-15 06:55] LABS: HEMOGLOBIN 11.8 G/DL (11.5-16.0); MEAN PLATELET VOLUME 8.7 FL (7.4-10.4); RED BLOOD COUNT 3.96 10^6/uL (4.35-5.85); RED CELL DISTRIBUTION WIDTH 13.6 % (10.0-14.5); WHITE BLOOD COUNT 16.6 10^3/uL (4.3-11.0)
[2018-04-15 07:07] LABS: BUN/CREATININE RATIO 16; CALCIUM 8.8 MG/DL (8.5-10.1); CARBON DIOXIDE 26 MMOL/L (21-32); CHLORIDE 101 MMOL/L (98-107); CREATININE SERUM 0.85 MG/DL (0.60-1.30); GFR ESTIMATED > 60; GLUCOSE 106 MG/DL (70-105); MAGNESIUM 2.1 MG/DL (1.8-2.4); PHOSPHORUS 2.8 MG/DL (2.3-4.7); POTASSIUM 3.3 MMOL/L (3.6-5.0); SODIUM 138 MMOL/L (135-145)
--- NOTE | 2018-04-15 08:44 | Diagnostic Imaging Report ---
Indication: Shortness of breath Portable chest 8:15 AM Heart size and pulmonary vascular normal. Lungs are clear. There are no effusions or pneumothoraces. Impression: Negative chest Dictated by: Dictated on workstation # [id number]
[2018-04-15] MEDS: FLUTICASONE NASAL SPRAY (FLONASE) 16 GM BTL NS SCH (10:19)
[2018-04-15] MEDS: CANDESARTAN CILEXETIL 16 MG PO SCH (10:20)
[2018-04-15] MEDS: LORATADINE (CLARITIN) 10 MG TAB PO SCH (10:22)
[2018-04-15] MEDS: DOCUSATE SODIUM 100 MG (COLACE) CAP PO SCH (10:22)
[2018-04-15] MEDS: BENZONATATE 100 MG (TESSALON) CAPSULE PO SCH ×2 (10:22→12:40)
[2018-04-15] MEDS: HYDROCODONE/CHLOR 10MG/5 ML (TUSSIONEX SUSP) 5ML UDC PO SCH (10:43)
[2018-04-15] MEDS ORDERED: POTA10TA6 PO (11:11)
[2018-04-15] MEDS ORDERED: IPRA3AMP INH (11:11)
[2018-04-15] MEDS ORDERED: PRED10TA22 PO (11:11)
[2018-04-15] MEDS ORDERED: FLUT1DIS26 IH (11:15)
--- NOTE | 2018-04-15 11:16 | Discharge Summary-Hospitalist ---
Diagnosis/Chief Complaint Date of Admission Apr 13, 2018 at 10:11 Date of Discharge Discharge Date: Apr 15, 2018 Discharge Diagnosis (1) Pneumonia Status: Acute (2) Status asthmaticus Status: Acute (3) Debility Status: Acute (4) Lives alone without help available Status: Chronic (5) Hypokalemia Status: Resolved (6) Hypertension Status: Resolved (7) Hyposmolality and/or hyponatremia Status: Resolved (8) Cough Status: Acute (9) Hypoxemia Status: Acute Discharge Summary Discharge Physical Exam Allergies: Uncoded Allergies: NARCOTICS (Adverse Reaction, Unknown, CAUSES OVERSENSITIVITY, 01/02/15) Vitals & I&Os Vital Signs Date Time Temp Pulse Resp B/P (MAP) Pulse Ox O2 Delivery O2 Flow Rate FiO2 04/15/18 15:30 89 18 134/70 96 Room Air 0.00 04/15/18 06:31 97.9 General Appearance: Alert, Oriented X3, Cooperative HEENT: Atraumatic, PERRLA Respiratory: Normal Air Movement, Other (Rales noted in all douglas but improved ) Cardiovascular: Regular Rate, Normal S1, Normal S2 Neuro: Normal Gait, Normal Speech, Strength at 5/5 X4 Ext Psych/Mental Status: Mental Status NL, Mood NL Hospital Course This is a 72-year-old white female who was placed on swing bed due to living alone without help and debility following status asthmaticus for the past approximate 9 weeks and left upper lobe pneumonia. She required high-dose IV steroids and empiric antibiotic of Zosyn to eventually gain control of the situation considering the severity of her bronchospasm. Hypokalemia was managed conservatively and Dr. Michael was consulted. He recommended close follow-up and on day of discharge she was willing to go home she felt much better nebulizer machine was arranged with medication and overall she would have close follow-up with me on Friday sooner if needed. She was instructed to start taking the Advair she took at home that she has a supply of twice daily. Labs (last 24 hrs) Laboratory Tests 04/14/18 21:16: Glucometer 157H 04/15/18 05:07: Glucometer 126H 04/15/18 06:32: White Blood Count 16.6H, Red Blood Count 3.96L, Hemoglobin 11.8, Hematocrit 34L , Mean Corpuscular Volume 86, Mean Corpuscular Hemoglobin 30, Mean Corpuscular Hemoglobin Concent 35, Red Cell Distribution Width 13.6, Platelet Count 295, Mean Platelet Volume 8.7, Sodium Level 138, Potassium Level 3.3L, Chloride Level 101, Carbon Dioxide Level 26, Anion Gap 11, Blood Urea Nitrogen 14, Creatinine 0.85, Estimat Glomerular Filtration Rate > 60, BUN/Creatinine Ratio 16, Glucose Level 106H, Calcium Level 8.8, Phosphorus Level 2.8, Magnesium Level 2.1 04/15/18 12:59: Glucometer 93 Patient resulted labs reviewed. Pending Labs Laboratory Tests 04/15/18 12:59: Glucometer 93 Discussion & Recommendations Discharge Planning: <30 minutes discharge planning Discharge Home Medications: Active Scripts Active Advair 250-50 Diskus (Fluticasone/Salmeterol) 1 Each Blst.w.dev 1 Each IH BID 30 Days Prednisone 10 Mg Tab.ds.pk 10 Mg PO DAILY Take 6 tabs(60mg)daily,decrease by 1 tab(10MG)daily. Klor-Con 10 (Potassium Chloride) 10 Meq Tablet.er 10 Meq PO TIDWM Iprat-Albut 0.5-3(2.5) mg/3 ml (Ipratropium/Albuterol Sulfate) 3 Ml Ampul.neb 3 Ml INH RTQ4HR Reported Hydrocodone-Chlorphen ER Susp (Hydrocodone/Chlorphen P-Stirex) 473 Ml [place].er.12h 5 Ml PO Q12H PRN Flonase Allergy Relief (Fluticasone Propionate) 9.9 Ml [place].susp 2 [place] NS BID 1 SPRAY EACH NARE DAILY Fexofenadine HCl 180 Mg Tablet 180 Mg PO BID Celecoxib 200 Mg Capsule 200 Mg PO DAILY Estradiol Tablet (Estradiol) 2 Mg Tablet 2 Mg PO DAILY Atorvastatin Calcium 20 Mg Tablet 20 Mg PO HS Candesartan Cilexetil 16 Mg Tablet 1 Tab PO DAILY Hydroxyzine HCl 25 Mg Tablet 25 Mg PO HS Montelukast Sodium 10 Mg Tablet 10 Mg PO HS Levothyroxine Sodium 50 Mcg Tablet 50 Mcg PO HS Instructions to patient/family Please see electronic discharge instructions given to patient. Clinical Quality Measures DVT/VTE Risk/Contraindication: Risk Factor Score Per Nursin Problem Qualifiers (1) Pneumonia: Pneumonia type: due to unspecified organism Laterality: left Lung location: upper lobe of lung Qualified Codes: J18.1 - Lobar pneumonia, unspecified organism ANNE SMILEY DO Apr 15, 2018 11:15
[2018-04-15] MEDS: predniSONE 10 MG TAB PO SCH (12:41)
[2018-04-15 15:30] VITALS: BP 134/70
== END 2018-04-15 15:30 | disposition home or self-care (01) | DRG 194 ==
LOC: 4TH 10:11
PROVIDERS: ADMIT Internal Medicine; ATTEND Internal Medicine
DX: J18.9 Pneumonia, unspecified organism (principal); J45.42 Moderate persistent asthma with status asthmaticus; J30.2 Other seasonal allergic rhinitis; I10 Essential (primary) hypertension; E78.00 Pure hypercholesterolemia, unspecified; E87.6 Hypokalemia; F41.9 Anxiety disorder, unspecified; F32.9 Major depressive disorder, single episode, unspecified; N32.81 Overactive bladder; M19.91 Primary osteoarthritis, unspecified site; Z87.891 Personal history of nicotine dependence; Z60.2 Problems related to living alone
CPT/HCPCS: 36415; 71045; 80048; 82962; 83735; 84100; 85027; 94640; 94760; 94761

== ENCOUNTER → 2018-06-25 | Outpatient (CLI) | payer MEDICARE, OTHER ==
[~2018-06-25] MED LIST changes: +FLUT1DIS26 IH; +IPRA3AMP31 INH; +POTA10TA6 PO; +PRED10TA22 PO
--- NOTE | 2018-06-25 13:21 | Diagnostic Imaging Report ---
PROCEDURE: CT chest without contrast. TECHNIQUE: Multiple contiguous axial images were obtained through the chest without the use of intravenous contrast. INDICATION: Followup pneumonia. Patient still has a cough. COMPARISON: Comparison is made with prior CT chest from 04/09/2018. FINDINGS: No axillary lymphadenopathy is identified. No definite mediastinal or hilar lymphadenopathy is seen. No pericardial or pleural fluid is detected. Airspace infiltrate in the posterior left upper lobe previously seen has resolved. Lower lung douglas appear to be fairly clear. There is a tiny subpleural nodule in the left lower lobe, image 46 measuring approximately 2-3 mm. Tiny nodule left upper lobe is stable. No new abnormality is detected. Upper abdomen is unremarkable. Sclerotic focus in lower thoracic vertebral body appears stable and possibly a bone island. IMPRESSION: Resolution of left upper lobe pneumonia when compared with exam from 04/09/2018. No new abnormality is detected. Dictated by: Dictated on workstation # [id number]
== END ==
LOC: RAD 12:08
PROVIDERS: ATTEND Nurse Practitioner Family
DX: J18.9 Pneumonia, unspecified organism (principal); J45.909 Unspecified asthma, uncomplicated
CPT/HCPCS: 71250

== ENCOUNTER → 2019-08-02 | Outpatient (CLI) | payer MEDICARE, OTHER ==
[~2019-08-02] MED LIST changes: +HOLD METFORMIN - RECEIVED CONTRAST 20 ML VIAL IV SCH; +IOHEXOL 350 MG/ML 100 ML (OMNIPAQUE 350) VIAL IV ONE; +NS 100 ML (IVPB) BAG IV ONE
[2019-08-02 08:58] LABS: BUN/CREATININE RATIO 13; CREATININE SERUM 0.85 MG/DL (0.60-1.30); GFR ESTIMATED > 60
--- NOTE | 2019-08-02 10:02 | Diagnostic Imaging Report ---
PROCEDURE: CT chest with contrast only. TECHNIQUE: Multiple contiguous axial images were obtained through the chest after administration of intravenous contrast. Auto Exposure Controls were utilized during the CT exam to meet ALARA standards for radiation dose reduction. INDICATION: COPD and shortness of air as well as chest tightness. Correlation is made with prior CT from 06/25/2018. FINDINGS: No axillary lymphadenopathy is detected. No mediastinal or hilar lymphadenopathy is detected. No pericardial or pleural fluid is identified. No pulmonary infiltrates are identified. Previously noted areas of micronodularity in the left upper and left lower lobe are not as well seen today. Central airways are patent. The upper abdomen is unremarkable. IMPRESSION: 1. No evidence of thoracic lymphadenopathy or pulmonary mass. No pulmonary infiltrates are detected. Dictated by: Dictated on workstation # [id number]
== END ==
LOC: RAD 08:24
PROVIDERS: ATTEND Nurse Practitioner Family
DX: J44.9 Chronic obstructive pulmonary disease, unspecified (principal); J30.2 Other seasonal allergic rhinitis; R94.2 Abnormal results of pulmonary function studies
CPT/HCPCS: 36415; 71260; 82565; 84520

== ENCOUNTER 2021-07-23 06:18 | Outpatient (CLI) | payer MEDICARE, OTHER ==
[~2021-07-23] VITALS: Ht 160 cm; Wt 72.7 kg
[~2021-07-23 06:18] MED LIST changes: -HOLD METFORMIN - RECEIVED CONTRAST 20 ML VIAL IV SCH; -HYDR473S34 PO; +HYDR473S61 PO; -IOHEXOL 350 MG/ML 100 ML (OMNIPAQUE 350) VIAL IV ONE; -MONT10TA24 PO; +MONT10TA32 PO; -NS 100 ML (IVPB) BAG IV ONE
[2021-07-24] MEDS ORDERED: FURO20TA4 PO (10:10)
[2021-07-24] MEDS ORDERED: CETI10TA49 PO (10:10)
[2021-07-24] MEDS ORDERED: CYCL5.5D OU (10:10)
[2021-07-24] MEDS ORDERED: FLUT1DIS26 IH (10:10)
[2021-07-24] MEDS ORDERED: CAND32TA8 PO (10:10)
== END 2021-07-24 10:12 | disposition home or self-care (01) ==
LOC: PREOP 06:18
PROVIDERS: ATTEND Specialist
DX: Z01.818 Encounter for other preprocedural examination (principal)

== ENCOUNTER 2021-07-27 09:59 | Day surgery (SDC) | payer MEDICARE, OTHER ==
[~2021-07-27] VITALS: Ht 160 cm; Wt 72.7 kg
[~2021-07-27 09:59] MED LIST changes: +CAND32TA8 PO; +CETI10TA49 PO; +CYCL5.5D OU; +FURO20TA4 PO
[2021-07-27] MEDS ORDERED: LIDOCAINE PF 1% 2 ML VIAL IR PRN (10:15)
[2021-07-27] MEDS ORDERED: TIMOLOL MALEATE 0.5% 5 ML (TIMOPTIC) BTL OU PRN (10:15)
[2021-07-27] MEDS ORDERED: MOXIFLOXACIN OPHTH SOLN 5 MG/ML 0.3 ML SYRINGE OP ONE (10:15)
[2021-07-27] MEDS ORDERED: POVIDONE (BETADINE) OPHTH SOLN 5% 30 ML OP ONE (10:15)
[2021-07-27] MEDS: TETRACAINE 0.5% OPHTH SOLN 4 ML BTL (SINGLE DOSE ONLY) OU PRN ×4 (10:17→10:37)
[2021-07-27] MEDS: PHENYLEPHRINE 10% OPHTH (NEO-SYN) 5 ML BTL OU SCH ×3 (10:26→10:37)
[2021-07-27] MEDS: TROPICAMIDE 1% OPH SOLN (MYDRIACYL) 15 ML BTL OP SCH ×3 (10:26→10:37)
[2021-07-27 10:34] VITALS: BP 139/74
[2021-07-27] MEDS ORDERED: MIDAZOLAM 2 MG/2 ML (VERSED) VIAL ONE (10:47)
--- NOTE | 2021-07-27 10:56 | Ophthalmologist Pre-Op Note ---
Pre-Operative Progress Note H&P Reviewed The H&P was reviewed, patient examined and no changes noted. Date H&P Reviewed: Jul 27, 2021 Time H&P Reviewed: 10:56 Pre-Op Dx Cataract, Right Eye SAMI PACHECO MD Jul 27, 2021 10:56
--- NOTE | 2021-07-27 11:18 | Ophthalmology Operative Report ---
Cataract removal/placement IOL PREOPERATIVE DIAGNOSIS: Cataract Right Eye POSTOPERATIVE DIAGNOSIS: Cataract Right Eye PROCEDURE: Cataract removal and placement of posterior chamber implant, right eye SURGEON: Prudencio Pacheco ANESTHESIA: Topical with sedation COMPLICATIONS: None ESTIMATED BLOOD LOSS: Minimal DESCRIPTION OF PROCEDURE: After proper informed consent was obtained, the patient, a 76 female, was taken to the Operating Room and the right eye was anesthetized with tetracaine. The right eye was then prepped and draped in the usual manner. A wire lid speculum was placed. A paracentesis was made at the left hand position. Preservative free lidocaine was injected into the anterior chamber followed by viscoelastic. A clear corneal incision was made in the temporal position. A capsulorrhexis was preformed and the central nuclear and cortical material were removed. The posterior capsule was polished and Eliu 14.5 AU00T0 IOL was placed into the capsular bag. The residual viscoelastic was aspirated and balanced saline solution was injected into the anterior chamber. Moxifloxacin was injected into the anterior chamber. The wound was checked and found to be water tight. The patient tolerated the procedure well without complications. PRUDENCIO PACHECO MD Jul 27, 2021 11:18
[2021-07-27 11:26] VITALS: BP 140/72
[2021-07-27] MEDS ORDERED: acetaZOLAMIDE ER 500 MG CAP (DIAMOX SEQUELS) PO ONE (11:30)
--- NOTE | 2021-07-27 14:05 | Anesthesia-General Post-Op ---
MAC Patient Condition Mental Status/LOC: Same as Preop Cardiovascular: Satisfactory Nausea/Vomiting: Absent Respiratory: Satisfactory Pain: Controlled Complications: Absent Post Op Complications Complications None Follow Up Care/Instructions Patient Instructions None needed. Anesthesiology Discharge Order Discharge Order Patient was seen after the procedure and she was doing well, no complaints, stable vital signs, no apparent adverse anesthesia problems. MARSHAL BOB DO Jul 27, 2021 14:05
== END 2021-07-27 11:27 ==
LOC: SDC 09:59
PROVIDERS: ATTEND Specialist
DX: H25.11 Age-related nuclear cataract, right eye (principal); I10 Essential (primary) hypertension; E78.5 Hyperlipidemia, unspecified; E03.9 Hypothyroidism, unspecified; J44.9 Chronic obstructive pulmonary disease, unspecified; M19.90 Unspecified osteoarthritis, unspecified site; Z90.710 Acquired absence of both cervix and uterus; Z90.89 Acquired absence of other organs; Z79.899 Other long term (current) drug therapy; Z83.3 Family history of diabetes mellitus; Z80.52 Family history of malignant neoplasm of bladder; Z80.42 Family history of malignant neoplasm of prostate
CPT/HCPCS: 66984; V2632

== ENCOUNTER 2021-08-17 09:42 | Day surgery (SDC) | payer MEDICARE, OTHER ==
[~2021-08-17] VITALS: Ht 160 cm; Wt 72.7 kg
[2021-08-17] MEDS: TETRACAINE 0.5% OPHTH SOLN 4 ML BTL (SINGLE DOSE ONLY) OU PRN ×4 (09:54→10:12)
[2021-08-17 09:59] VITALS: BP 138/81
[2021-08-17] MEDS ORDERED: POVIDONE (BETADINE) OPHTH SOLN 5% 30 ML OP ONE (10:00)
[2021-08-17] MEDS ORDERED: MOXIFLOXACIN OPHTH SOLN 5 MG/ML 0.3 ML SYRINGE OP ONE (10:00)
[2021-08-17] MEDS ORDERED: TIMOLOL MALEATE 0.5% 5 ML (TIMOPTIC) BTL OU PRN (10:00)
[2021-08-17] MEDS ORDERED: LIDOCAINE PF 1% 2 ML VIAL IR PRN (10:00)
[2021-08-17] MEDS: TROPICAMIDE 1% OPH SOLN (MYDRIACYL) 15 ML BTL OP SCH ×3 (10:02→10:12)
[2021-08-17] MEDS: PHENYLEPHRINE 10% OPHTH (NEO-SYN) 5 ML BTL OU SCH ×3 (10:02→10:12)
[2021-08-17] MEDS ORDERED: MIDAZOLAM 2 MG/2 ML (VERSED) VIAL ONE (10:34)
--- NOTE | 2021-08-17 10:51 | Ophthalmology Operative Report ---
Cataract removal/placement IOL PREOPERATIVE DIAGNOSIS: Cataract Left Eye POSTOPERATIVE DIAGNOSIS: Cataract Left Eye PROCEDURE: Cataract removal and placement of posterior chamber implant, left eye SURGEON: Prudencio Pacheco ANESTHESIA: Topical with sedation COMPLICATIONS: None ESTIMATED BLOOD LOSS: Minimal DESCRIPTION OF PROCEDURE: After proper informed consent was obtained, the patient, a 76 female, was taken to the Operating Room and the left eye was anesthetized with tetracaine. The left eye was then prepped and draped in the usual manner. A wire lid speculum was placed. A paracentesis was made at the left hand position. Preservative free lidocaine was injected into the anterior chamber followed by viscoelastic. A clear corneal incision was made in the temporal position. A capsulorrhexis was preformed and the central nuclear and cortical material were removed. The posterior capsule was polished and an Eliu 20.0 AU00T0 was placed into the capsular bag. The residual viscoelastic was aspirated and balanced saline solution was injected into the anterior chamber. Moxifloxacin was injected into the anterior chamber. The wound was checked and found to be water tight. The patient tolerated the procedure well without complications. PRUDENCIO PACHECO MD Aug 17, 2021 10:51
--- NOTE | 2021-08-17 10:51 | Ophthalmologist Pre-Op Note ---
Pre-Operative Progress Note H&P Reviewed The H&P was reviewed, patient examined and no changes noted. Date H&P Reviewed: Aug 17, 2021 Time H&P Reviewed: 09:45 Pre-Op Dx Cataract, Left Eye SAMI PACHECO MD Aug 17, 2021 10:50
[2021-08-17 11:02] VITALS: BP 144/73
[2021-08-17] MEDS ORDERED: acetaZOLAMIDE ER 500 MG CAP (DIAMOX SEQUELS) PO ONE (11:30)
--- NOTE | 2021-08-17 14:05 | Anesthesia-General Post-Op ---
MAC Patient Condition Mental Status/LOC: Same as Preop Cardiovascular: Satisfactory Nausea/Vomiting: Absent Respiratory: Satisfactory Pain: Controlled Complications: Absent Post Op Complications Complications None Follow Up Care/Instructions Patient Instructions None needed. Anesthesiology Discharge Order Discharge Order Patient is doing well, no complaints, stable vital signs, no apparent adverse anesthesia problems. No complications reported per nursing. NEHEMIAS GRIFFIN CRNA Aug 17, 2021 14:04
== END 2021-08-17 11:03 ==
LOC: SDC 09:42
PROVIDERS: ATTEND Specialist
DX: H25.12 Age-related nuclear cataract, left eye (principal); J44.9 Chronic obstructive pulmonary disease, unspecified; I10 Essential (primary) hypertension; E03.9 Hypothyroidism, unspecified; Z79.899 Other long term (current) drug therapy; Z79.890 Hormone replacement therapy
CPT/HCPCS: 66984; V2632